=== PATIENT | male | born 1960 | race Caucasian/White ===

== ENCOUNTER 2018-02-16 15:40 | Inpatient (IN) | payer BC ==
[~2018-02-16] VITALS: Ht 165.1 cm; Wt 71.1 kg
[2018-02-16 16:11] LABS: BASOPHILS % (AUTO) 0.2 % (0-1); EOSINOPHILS # (AUTO) 0.1 X10'3 (0-0.9); EOSINOPHILS % (AUTO) 0.9 % (0-6); HEMATOCRIT 40.6 % (42.0-52.0); HEMOGLOBIN 14.1 g/dl (14.0-17.9); LYMPHOCYTES # (AUTO) 0.6 X10'3 (1.1-4.8); LYMPHOCYTES % (AUTO) 10.5 % (21-51); MEAN CORPUSCULAR HEMOGLOBIN 32.2 PG (27.0-31.0); MEAN CORPUSCULAR HGB CONC 34.8 % (33.0-36.5); MEAN CORPUSCULAR VOLUME 92.5 FL (78-98); MEAN PLATELET VOLUME 6.9 FL (7.4-10.4); MONOCYTES # (AUTO) 0.4 X10'3 (0-0.9); NEUTROPHILS # (AUTO) 4.9 X10'3 (1.8-7.7); NEUTROPHILS % (AUTO) 82.4 % (42-75); PLATELET COUNT 187 X10'3 (140-440); RED BLOOD COUNT 4.39 X10'6 (4.70-6.10); RED CELL DISTRIBUTION WIDTH 15.2 % (11.5-14.5); WHITE BLOOD COUNT 5.9 X10'3 (4.5-11.0)
[2018-02-16 16:20] LABS: INR 1.1 INR; PARTIAL THROMBOPLASTIN TIME 25 SECONDS (22-32); PROTHROMBIN TIME 11.1 SECONDS (9.0-12.0)
[2018-02-16 16:28] LABS: ALANINE AMINOTRANSFERASE 53 U/L (12-78); ALBUMIN 3.6 G/DL (3.4-5.0); ALBUMIN/GLOBULIN RATIO 0.9 (1.1-1.5); ALKALINE PHOSPHATASE 128 IU/L (46-116); ANION GAP 16 (8-16); ASPARTATE AMINO TRANSFERASE 67 U/L (10-37); BILIRUBIN,TOTAL 0.7 MG/DL (0.1-1.0); BLOOD UREA NITROGEN 13 MG/DL (7-18); BUN/CREATININE RATIO 12.9 (5.4-32.0); CALCIUM 8.6 MG/DL (8.5-10.1); CHLORIDE 104 MMOL/L (99-107); CREATININE 1.01 MG/DL (0.60-1.10); GLUCOSE 119 MG/DL (70-104); POTASSIUM 3.2 MMOL/L (3.5-5.1); SODIUM 140 MMOL/L (135-145); TOTAL CARBON DIOXIDE 19.9 MMOL/L (24-32); TOTAL PROTEIN 7.4 G/DL (6.4-8.2); eGFR 76 ML/MIN
[2018-02-16] MEDS ORDERED: normal saline 1000ML IV soln IVB ONE ×3 (16:40→22:25)
[2018-02-16] MEDS ORDERED: LOSA25TA96 PO (16:41)
[2018-02-16] MEDS ORDERED: ESCI20TA38 PO (16:41)
[2018-02-16] MEDS ORDERED: OMEP40CA37 PO (16:41)
[2018-02-16] MEDS ORDERED: AMLO2.5T2 PO (16:43)
[2018-02-16] MEDS ORDERED: ZOLP5TAB8 PO (16:43)
[2018-02-16 17:03] LABS: ETHANOL < 0.010 GM/DL (0.0-0.010)
[2018-02-16 18:40] LABS: COLOR,URINE YELLOW (Yellow); GLUCOSE, URINE NEGATIVE (Neg); KETONES,URINE NEGATIVE (Neg); LEUKOCYTE ESTERASE ,URINE NEGATIVE (Neg); NITRITES, URINE NEGATIVE (Neg); OCCULT BLOOD,URINE NEGATIVE (Neg); PH,URINE 5.5 (4.8-8.0); PROTEIN,URINE NEGATIVE (Neg); UROBILINOGEN,URINE 0.2 E.U/dL (0.2-1.0)
[2018-02-16 18:44] LABS: URINE AMPHETAMINE SCREEN NEGATIVE (Neg); URINE BARBITUATE SCREEN NEGATIVE (Neg); URINE BENZODIAZEPINES SCREEN NEGATIVE (Neg); URINE CANNABINOID SCREEN NEGATIVE (Neg); URINE COCAINE SCREEN NEGATIVE (Neg); URINE METHADONE SCREEN NEGATIVE (Neg); URINE OPIATE SCREEN NEGATIVE (Neg); URINE PHENCYCLIDINE SCREEN NEGATIVE (Neg)
[2018-02-16 18:48] LABS: CLARITY,URINE SLIGHTLY CLOUDY (Clear); UA COLLECTION TYPE VOIDED
[2018-02-16 18:49] LABS: BACTERIA,URINE NONE SEEN /HPF (Neg); RBC,URINE NONE SEEN /HPF (0-2); SQUAMOUS EPITHELIAL CELL,UR FEW /LPF (FEW); URIC ACID CRYSTALS 4+ /HPF (NEGATIVE); WBC,URINE NONE SEEN /HPF (0-4)
[2018-02-16] MEDS ORDERED: LORazepam 2 mg/ml vial IV ONE (19:10)
[2018-02-16] MEDS ORDERED: LIDOcaine 1% 30ml preserv. free vial IJ ONE (21:50)
[2018-02-16] MEDS ORDERED: LIDOcaine 1%/PF 5ML 10 MG/ML VIAL IJ ONE (21:50)
[2018-02-16 22:59] LABS: GLUCOSE,CSF 67 MG/DL (40-75); TOTAL PROTEIN,CSF 75 MG/DL (15-45)
[2018-02-16 23:10] LABS: APPEARANCE,CSF CLEAR; CSF RBC 0 /CU MM (0); CSF SUPERNATANT COLOR COLORLESS; TUBE# COUNTED 4
[2018-02-16 23:11] LABS: CSF WBC CT 0 /CU MM (0-5)
[2018-02-16] MEDS ORDERED: mag hydrox/Alum hydrox/simeth 30ml oral suspension PO PRN (23:55)
[2018-02-16] MEDS ORDERED: magnesium hydroxide 30ml (MOM) UD suspension PO PRN (23:55)
[2018-02-16] MEDS ORDERED: acetaminophen 325mg tablet PO PRN (23:55)
[2018-02-16] MEDS ORDERED: ondansetron/PF 4mg/2ml inj IV PRN (23:55)
[2018-02-17] MEDS ORDERED: LORazepam 2 mg/ml vial IV PRN
[2018-02-17] MEDS ORDERED: zolpidem 5mg tablet PO PRN (00:10)
[2018-02-17] MEDS ORDERED: levetiracetam 100mg/ml inj IV ONE (00:22)
[2018-02-17] MEDS: levetiracetam inj 1,000 MG in normal saline 100ml IV soln 90 ML IV SCH ×2 (00:41→09:19)
[2018-02-17 01:05] VITALS: BP 127/81
[2018-02-17] MEDS: normal saline 1000ml 1,000 ML IV SCH ×2 (01:30→09:54)
[2018-02-17 04:23] LABS: BASOPHILS % (AUTO) 0.4 % (0-1); EOSINOPHILS % (AUTO) 0.1 % (0-6); HEMATOCRIT 36.6 % (42.0-52.0); LYMPHOCYTES # (AUTO) 0.8 X10'3 (1.1-4.8); MEAN CORPUSCULAR HGB CONC 35.4 % (33.0-36.5); MEAN CORPUSCULAR VOLUME 93.1 FL (78-98); MEAN PLATELET VOLUME 7.4 FL (7.4-10.4); MONOCYTES # (AUTO) 0.3 X10'3 (0-0.9); MONOCYTES % (AUTO) 8.4 % (2-12); NEUTROPHILS # (AUTO) 2.3 X10'3 (1.8-7.7); NEUTROPHILS % (AUTO) 67.1 % (42-75); PLATELET COUNT 152 X10'3 (140-440); RED BLOOD COUNT 3.93 X10'6 (4.70-6.10); RED CELL DISTRIBUTION WIDTH 15.1 % (11.5-14.5); WHITE BLOOD COUNT 3.4 X10'3 (4.5-11.0)
[2018-02-17 04:37] LABS: ALANINE AMINOTRANSFERASE 42 U/L (12-78); ALBUMIN 2.9 G/DL (3.4-5.0); ALBUMIN/GLOBULIN RATIO 0.9 (1.1-1.5); ALKALINE PHOSPHATASE 110 IU/L (46-116); ANION GAP 12 (8-16); ASPARTATE AMINO TRANSFERASE 55 U/L (10-37); BILIRUBIN,TOTAL 0.6 MG/DL (0.1-1.0); BLOOD UREA NITROGEN 4 MG/DL (7-18); BUN/CREATININE RATIO 4.5 (5.4-32.0); CALCIUM 7.7 MG/DL (8.5-10.1); CHLORIDE 106 MMOL/L (99-107); CREATININE 0.88 MG/DL (0.60-1.10); GLUCOSE 104 MG/DL (70-104); POTASSIUM 3.4 MMOL/L (3.5-5.1); SODIUM 140 MMOL/L (135-145); TOTAL CARBON DIOXIDE 22.5 MMOL/L (24-32); TOTAL PROTEIN 6.2 G/DL (6.4-8.2); eGFR 89 ML/MIN
[2018-02-17] MEDS ORDERED: pantoprazole 40mg Tablet.DR PO SCH (07:30)
[2018-02-17 08:00] VITALS: BP 152/90
[2018-02-17] MEDS ORDERED: acyclovir inj 750 MG in normal saline 250ml IV soln 235 ML IV SCH (08:00)
[2018-02-17] MEDS ORDERED: losartan 25mg tablet PO SCH (08:00)
[2018-02-17] MEDS ORDERED: escitalopram 20mg tablet PO SCH (08:00)
[2018-02-17] MEDS ORDERED: amLODIPine 5mg tablet PO SCH (08:00)
[2018-02-17] MEDS ORDERED: gadopentetate dimeglumine 7.5 MMOL/15 ML syringe ONE (10:25)
[2018-02-18] MEDS ORDERED: citalopram 20mg tablet PO SCH (08:00)
[2018-02-21 05:24] LABS: HSV 1 PCR Negative (Negative); HSV 2 PCR Negative (Negative)
== END 2018-02-17 11:15 | disposition home or self-care (01) | DRG 683 ==
LOC: ER 15:41 → ED HOLD 23:54 → ORTHO 4S 02-17 01:00
PROVIDERS: ADMIT Internal Medicine; ATTEND Internal Medicine
PROC: 009U3ZZ Drainage of Spinal Canal, Percutaneous Approach (ICD-10-PCS; 2018-02-16)
PROC: 4A10X4Z Monitoring of Central Nervous Electrical Activity, External Approach (ICD-10-PCS; principal; 2018-02-17)
DX: N17.9 Acute kidney failure, unspecified (principal); R47.01 Aphasia; I10 Essential (primary) hypertension; R13.10 Dysphagia, unspecified; E86.0 Dehydration; F32.9 Major depressive disorder, single episode, unspecified
CPT/HCPCS: 36415; 70450; 70544; 70547; 70551; 71045; 80053; 80305; 80320; 81001; 82140; 82945; 84157; 84484; 85025; 85610; 85730; 86788; 86789; 87015; 87070; 87529; 89051; 93005; 95816; 96361; 96374; 99285; A9579; J0133; J1953; J2001; J2060; J7030

== ENCOUNTER 2019-04-05 13:50 | Inpatient (IN) | payer BC, OTHER ==
[~2019-04-05] VITALS: Ht 165.1 cm; Wt 78.0 kg
[~2019-04-05 13:50] MED LIST: ATOR20TA PO; CARV-50 PO; ESCI20TA38 PO; FURO40TA4 PO; LOSA25TA96 PO; OMEP40CA13 PO; SPIR25TA PO; ZOLP5TAB8 PO
[2019-04-05] MEDS ORDERED: normal saline 1000ML IV soln IVB ONE (15:35)
[2019-04-05] MEDS ORDERED: ondansetron/PF 4mg/2ml inj IV ONE (15:35)
[2019-04-05] MEDS ORDERED: LORazepam 2 mg/ml vial IV ONE ×2 (15:35→17:20)
[2019-04-05 15:57] LABS: BASOPHILS % (AUTO) 0.5 % (0-1); EOSINOPHILS # (AUTO) 0.1 X10'3 (0-0.9); EOSINOPHILS % (AUTO) 0.8 % (0-6); HEMATOCRIT 46.5 % (42.0-52.0); HEMOGLOBIN 16.1 g/dl (14.0-17.9); LYMPHOCYTES # (AUTO) 2.1 X10'3 (1.1-4.8); LYMPHOCYTES % (AUTO) 29.2 % (21-51); MEAN CORPUSCULAR HEMOGLOBIN 31.6 PG (27.0-31.0); MEAN CORPUSCULAR HGB CONC 34.6 g/dL (33.0-36.5); MEAN CORPUSCULAR VOLUME 91.1 FL (78-98); MEAN PLATELET VOLUME 7.8 FL (7.4-10.4); MONOCYTES # (AUTO) 0.4 X10'3 (0-0.9); MONOCYTES % (AUTO) 5.3 % (2-12); NEUTROPHILS # (AUTO) 4.5 X10'3 (1.8-7.7); NEUTROPHILS % (AUTO) 64.2 % (42-75); PLATELET COUNT 203 X10'3 (140-440); RED BLOOD COUNT 5.11 X10'6 (4.70-6.10); WHITE BLOOD COUNT 7.1 X10'3 (4.5-11.0)
[2019-04-05 16:15] LABS: ALANINE AMINOTRANSFERASE 104 U/L (12-78); ALBUMIN 3.7 G/DL (3.4-5.0); ALBUMIN/GLOBULIN RATIO 0.8 (1.1-1.5); ALKALINE PHOSPHATASE 143 IU/L (46-116); ANION GAP 15 (8-16); ASPARTATE AMINO TRANSFERASE 146 U/L (10-37); BLOOD UREA NITROGEN 70 MG/DL (7-18); BUN/CREATININE RATIO 30.7 (5.4-32.0); CALCIUM 9.1 MG/DL (8.5-10.1); CHLORIDE 101 MMOL/L (99-107); CREATININE 2.28 MG/DL (0.60-1.10); GLUCOSE 148 MG/DL (70-104); MAGNESIUM 1.8 MG/DL (1.5-2.4); POTASSIUM 4.7 MMOL/L (3.5-5.1); SODIUM 134 MMOL/L (135-145); TOTAL CARBON DIOXIDE 17.7 MMOL/L (24-32); TOTAL PROTEIN 8.4 G/DL (6.4-8.2); eGFR 30 ML/MIN
[2019-04-05] MEDS ORDERED: PANT40TA4 PO (16:40)
[2019-04-05] MEDS ORDERED: SPIR25TA5 PO (16:40)
[2019-04-05] MEDS ORDERED: CARV-50 PO (16:40)
[2019-04-05] MEDS ORDERED: FURO40TA4 PO (16:40)
[2019-04-05] MEDS ORDERED: POTA-82 PO (16:40)
[2019-04-05] MEDS ORDERED: ASPI-611 PO (16:40)
[2019-04-05] MEDS ORDERED: OMEG-107 PO (16:40)
[2019-04-05] MEDS ORDERED: thiamine 100mg/ml 2ml inj. IV ONE (17:35)
[2019-04-05] MEDS ORDERED: magnesium hydroxide 30ml (MOM) UD suspension PO PRN (17:35)
[2019-04-05] MEDS ORDERED: dextrose 50%-water 50ml dispensing syringe IV PRN (17:35)
[2019-04-05] MEDS ORDERED: mag hydrox/Alum hydrox/simeth 30ml oral suspension PO PRN (17:35)
[2019-04-05] MEDS ORDERED: LORazepam 2 mg/ml vial IV PRN (17:35)
[2019-04-05] MEDS ORDERED: acetaminophen 325mg tablet PO PRN (17:35)
[2019-04-05] MEDS ORDERED: ondansetron/PF 4mg/2ml inj IV PRN (17:35)
[2019-04-05] MEDS: normal saline 1000ml 1,000 ML IV SCH (18:05)
[2019-04-05 20:00] VITALS: BP 116/59
[2019-04-05] MEDS: heparin, porcine 5000 units/ml vial SQ SCH (21:15)
[2019-04-06] VITALS: BP 112/71
[2019-04-06 04:52] LABS: BASOPHILS % (AUTO) 0.4 % (0-1); EOSINOPHILS # (AUTO) 0.1 X10'3 (0-0.9); EOSINOPHILS % (AUTO) 2.1 % (0-6); HEMATOCRIT 39.9 % (42.0-52.0); HEMOGLOBIN 13.6 g/dl (14.0-17.9); LYMPHOCYTES # (AUTO) 1.5 X10'3 (1.1-4.8); MEAN CORPUSCULAR HEMOGLOBIN 31.3 PG (27.0-31.0); MEAN CORPUSCULAR HGB CONC 34.2 g/dL (33.0-36.5); MEAN CORPUSCULAR VOLUME 91.5 FL (78-98); MEAN PLATELET VOLUME 7.9 FL (7.4-10.4); MONOCYTES # (AUTO) 0.3 X10'3 (0-0.9); MONOCYTES % (AUTO) 8.9 % (2-12); NEUTROPHILS # (AUTO) 1.7 X10'3 (1.8-7.7); NEUTROPHILS % (AUTO) 47.6 % (42-75); PLATELET COUNT 137 X10'3 (140-440); RED BLOOD COUNT 4.36 X10'6 (4.70-6.10); RED CELL DISTRIBUTION WIDTH 15.1 % (11.5-14.5); WHITE BLOOD COUNT 3.6 X10'3 (4.5-11.0)
[2019-04-06 05:25] LABS: ALANINE AMINOTRANSFERASE 86 U/L (12-78); ALBUMIN 2.8 G/DL (3.4-5.0); ALBUMIN/GLOBULIN RATIO 0.8 (1.1-1.5); ALKALINE PHOSPHATASE 114 IU/L (46-116); ANION GAP 12 (8-16); ASPARTATE AMINO TRANSFERASE 121 U/L (10-37); BILIRUBIN,TOTAL 0.8 MG/DL (0.1-1.0); BLOOD UREA NITROGEN 47 MG/DL (7-18); CALCIUM 8.3 MG/DL (8.5-10.1); CHLORIDE 106 MMOL/L (99-107); CREATININE 1.47 MG/DL (0.60-1.10); GLUCOSE 117 MG/DL (70-104); SODIUM 138 MMOL/L (135-145); TOTAL CARBON DIOXIDE 20.3 MMOL/L (24-32); TOTAL PROTEIN 6.5 G/DL (6.4-8.2); eGFR 49 ML/MIN
[2019-04-06 05:45] LABS: POTASSIUM 4.6 MMOL/L (3.5-5.1)
--- NOTE | 2019-04-06 06:17 | NUR ---
Problems reprioritized. Patient report given, questions answered & plan of care reviewed with FIGUEROA. Addendum: 04/06/19 at 0618 by Eduardo Esposito RN Amended: Links added.
[2019-04-06 08:00] VITALS: BP 129/78
[2019-04-06] MEDS: normal saline 1000ml 1,000 ML IV SCH ×2 (08:10→20:24)
[2019-04-06] MEDS: MVI, adult No.4 with vit. K 10 ML in dextrose 5% water 500ml 500 ML IV SCH ×2 (08:10)
[2019-04-06] MEDS: thiamine inj. 100 MG, folic acid inj. 2 MG in normal saline 100ml IV soln 99 ML IV SCH (08:15)
[2019-04-06] MEDS: heparin, porcine 5000 units/ml vial SQ SCH ×2 (08:16→20:16)
[2019-04-06] MEDS ORDERED: zolpidem 5mg tablet PO PRN (12:55)
[2019-04-06 20:00] VITALS: BP 153/77
[2019-04-06] MEDS: carVEDilol 12.5mg tablet PO SCH (20:15)
[2019-04-06] MEDS: pantoprazole 40mg Tablet.DR PO SCH (20:15)
[2019-04-06] MEDS ORDERED: omega-3 acid ethyl esters 1GM capsule PO SCH (21:00)
[2019-04-07] VITALS: BP 150/78
[2019-04-07 04:58] LABS: BASOPHILS % (AUTO) 0.6 % (0-1); EOSINOPHILS # (AUTO) 0.1 X10'3 (0-0.9); HEMATOCRIT 37.5 % (42.0-52.0); HEMOGLOBIN 12.9 g/dl (14.0-17.9); LYMPHOCYTES # (AUTO) 1.5 X10'3 (1.1-4.8); LYMPHOCYTES % (AUTO) 43.5 % (21-51); MEAN CORPUSCULAR HEMOGLOBIN 31.2 PG (27.0-31.0); MEAN CORPUSCULAR HGB CONC 34.4 g/dL (33.0-36.5); MEAN CORPUSCULAR VOLUME 90.9 FL (78-98); MONOCYTES # (AUTO) 0.3 X10'3 (0-0.9); MONOCYTES % (AUTO) 8.9 % (2-12); NEUTROPHILS # (AUTO) 1.5 X10'3 (1.8-7.7); PLATELET COUNT 116 X10'3 (140-440); RED BLOOD COUNT 4.12 X10'6 (4.70-6.10); RED CELL DISTRIBUTION WIDTH 14.7 % (11.5-14.5); WHITE BLOOD COUNT 3.4 X10'3 (4.5-11.0)
[2019-04-07 05:11] LABS: ALANINE AMINOTRANSFERASE 64 U/L (12-78); ALBUMIN 2.7 G/DL (3.4-5.0); ALBUMIN/GLOBULIN RATIO 0.8 (1.1-1.5); ALKALINE PHOSPHATASE 99 IU/L (46-116); ANION GAP 8 (8-16); ASPARTATE AMINO TRANSFERASE 71 U/L (10-37); BILIRUBIN,TOTAL 0.7 MG/DL (0.1-1.0); BLOOD UREA NITROGEN 18 MG/DL (7-18); BUN/CREATININE RATIO 18.2 (5.4-32.0); CALCIUM 8.9 MG/DL (8.5-10.1); CHLORIDE 106 MMOL/L (99-107); CREATININE 0.99 MG/DL (0.60-1.10); GLUCOSE 104 MG/DL (70-104); POTASSIUM 4.4 MMOL/L (3.5-5.1); SODIUM 138 MMOL/L (135-145); TOTAL CARBON DIOXIDE 23.6 MMOL/L (24-32); TOTAL PROTEIN 6.1 G/DL (6.4-8.2); eGFR 78 ML/MIN
--- NOTE | 2019-04-07 06:00 | NUR ---
Patient in room [facility]. I have received report from Candace MISTRY and had the opportunity to ask questions and assume patient care.
--- NOTE | 2019-04-07 06:34 | NUR ---
Problems reprioritized. Patient report given, questions answered & plan of care reviewed with FIDELIA Davis.
[2019-04-07] MEDS: thiamine inj. 100 MG, folic acid inj. 2 MG in normal saline 100ml IV soln 99 ML IV SCH (07:25)
[2019-04-07] MEDS: MVI, adult No.4 with vit. K 10 ML in dextrose 5% water 500ml 500 ML IV SCH ×2 (07:26)
[2019-04-07] MEDS: pantoprazole 40mg Tablet.DR PO SCH (07:26)
[2019-04-07] MEDS: heparin, porcine 5000 units/ml vial SQ SCH (07:27)
[2019-04-07] MEDS: carVEDilol 12.5mg tablet PO SCH (07:27)
[2019-04-07 07:45] VITALS: BP 159/81
[2019-04-07] MEDS ORDERED: citalopram 20mg tablet PO SCH (08:00)
[2019-04-07] MEDS ORDERED: atorvastatin 20mg tablet PO SCH (08:00)
[2019-04-07] MEDS ORDERED: aspirin 81mg tablet.DR PO SCH (08:00)
[2019-04-07] MEDS ORDERED: non-formulary drug (Potassium Chloride 1 TAB) PO SCH (08:00)
[2019-04-07] MEDS ORDERED: spironolactone 25 MG tablet PO SCH (08:00)
[2019-04-07] MEDS ORDERED: furosemide 40mg tablet PO SCH (08:00)
[2019-04-07] MEDS ORDERED: losartan 50mg tablet PO SCH (08:00)
[2019-04-07] MEDS ORDERED: non-formulary drug (Aspirin (Aspir 81) 1 TAB) PO SCH (08:00)
[2019-04-07] MEDS ORDERED: potassium Cl 20 mEq SR tablet PO SCH (08:00)
[2019-04-07] MEDS ORDERED: non-formulary drug (Escitalopram Oxalate 1 TAB) PO SCH (08:00)
--- NOTE | 2019-04-07 10:58 | NUR ---
Patient discharged with all belongings. Pt walked to front lobby with PCT. IV taken out, tele taken off. Discharge paperwork gone over with pt.
[2019-04-07] MEDS ORDERED: LORazepam 2 mg/ml vial IV PRN (17:35)
[2019-04-07] MEDS ORDERED: LORazepam 1 MG tablet PO PRN (17:35)
[2019-04-08] MEDS ORDERED: multivitamins, therapeutics tablet PO SCH (08:00)
[2019-04-08] MEDS ORDERED: folic acid 1mg tablet PO SCH (08:00)
[2019-04-08] MEDS ORDERED: thiamine 100mg tablet PO SCH (08:00)
[2019-04-09] MEDS ORDERED: LORazepam 1 MG tablet PO PRN (17:35)
[2019-04-09] MEDS ORDERED: LORazepam 2 mg/ml vial IV PRN (17:35)
== END 2019-04-07 10:55 | disposition home or self-care (01) | DRG 896 ==
LOC: ER 13:52 → SUR 3N 19:10
PROVIDERS: ADMIT Family Medicine; ATTEND Internal Medicine
DX: F10.239 Alcohol dependence with withdrawal, unspecified (principal); N17.0 Acute kidney failure with tubular necrosis; I42.0 Dilated cardiomyopathy; I50.22 Chronic systolic (congestive) heart failure; E86.0 Dehydration; E78.00 Pure hypercholesterolemia, unspecified; K70.10 Alcoholic hepatitis without ascites; R74.0 Nonspecific elevation of levels of transaminase and lactic acid dehydrogenase [LDH]; E78.5 Hyperlipidemia, unspecified; I11.0 Hypertensive heart disease with heart failure; Z79.82 Long term (current) use of aspirin; Z79.899 Other long term (current) drug therapy; Z82.49 Family history of ischemic heart disease and other diseases of the circulatory system
CPT/HCPCS: 36415; 71045; 80053; 83735; 83880; 84484; 85025; 87081; 93005; 96361; 96374; 96375; 96376; 99285; G0378; J1644; J2060; J2405; J3411; J3490; J7030; J7060

== ENCOUNTER 2021-04-29 12:26 | Emergency (ER) | payer OTHER ==
[~2021-04-29] VITALS: Ht 162.6 cm; Wt 90.0 kg
[~2021-04-29 12:26] MED LIST changes: +ASPI-611 PO; -ESCI20TA38 PO; +ESCI20TA39 PO; +OMEG-220 PO; -OMEP40CA13 PO; +PANT40TA54 PO; +POTA-82 PO; -SPIR25TA PO; +SPIR25TA5 PO
[2021-04-29 12:40] VITALS: BP 146/98
[2021-04-29] MEDS ORDERED: LEVO500T89 PO (13:06)
[2021-04-29] MEDS ORDERED: PRED20TA PO (13:06)
[2021-04-29] MEDS ORDERED: ALBU6.7H9 INH (13:06)
== END 2021-04-29 13:24 | disposition home or self-care (01) ==
LOC: ER 12:26
DX: U07.1 COVID-19 (principal); J12.82 Pneumonia due to coronavirus disease 2019; E78.00 Pure hypercholesterolemia, unspecified; I10 Essential (primary) hypertension; Z72.89 Other problems related to lifestyle; Z79.82 Long term (current) use of aspirin; Z79.899 Other long term (current) drug therapy
CPT/HCPCS: 71045; 99283

== ENCOUNTER 2021-06-13 08:46 | Emergency (ER) | payer OTHER ==
[~2021-06-13] VITALS: Ht 165.1 cm; Wt 98.0 kg
[~2021-06-13 08:46] MED LIST changes: +ALBU6.7H9 INH
[2021-06-13 09:36] LABS: BASOPHILS % (AUTO) 0.6 % (0-1); EOSINOPHILS # (AUTO) 0.2 X10'3 (0-0.9); EOSINOPHILS % (AUTO) 3.9 % (0-6); HEMATOCRIT 43.1 % (42.0-52.0); HEMOGLOBIN 15.1 g/dl (14.0-17.9); LYMPHOCYTES # (AUTO) 1.3 X10'3 (1.1-4.8); LYMPHOCYTES % (AUTO) 23.3 % (21-51); MEAN CORPUSCULAR HEMOGLOBIN 31.6 PG (27.0-31.0); MEAN CORPUSCULAR HGB CONC 34.9 g/dL (33.0-36.5); MEAN CORPUSCULAR VOLUME 90.4 FL (78-98); MONOCYTES # (AUTO) 0.4 X10'3 (0-0.9); MONOCYTES % (AUTO) 7.1 % (2-12); NEUTROPHILS # (AUTO) 3.6 X10'3 (1.8-7.7); NEUTROPHILS % (AUTO) 65.1 % (42-75); PLATELET COUNT 188 X10'3 (140-440); RED BLOOD COUNT 4.77 X10'6 (4.70-6.10); RED CELL DISTRIBUTION WIDTH 14.5 % (11.5-14.5); WHITE BLOOD COUNT 5.5 X10'3 (4.5-11.0)
[2021-06-13 09:38] LABS: CLARITY,URINE SLIGHTLY CLOUDY (Clear); COLOR,URINE YELLOW (Yellow); UA COLLECTION TYPE CLN CATCH MIDSTREAM
[2021-06-13 09:39] LABS: GLUCOSE, URINE NEGATIVE (Neg); KETONES,URINE NEGATIVE (Neg); LEUKOCYTE ESTERASE ,URINE NEGATIVE (Neg); NITRITES, URINE NEGATIVE (Neg); OCCULT BLOOD,URINE NEGATIVE (Neg); PROTEIN,URINE TRACE mg/dl (Neg); UROBILINOGEN,URINE 0.2 E.U/dL (0.2-1.0)
[2021-06-13 09:43] LABS: MUCUS STRANDS MANY /LPF (Neg); SQUAMOUS EPITHELIAL CELL,UR FEW /LPF (FEW)
[2021-06-13 09:44] LABS: BACTERIA,URINE FEW /HPF (Neg); HYALINE CASTS 0-3 /LPF (NEGATIVE); RBC,URINE 0-2 /HPF (0-2); WBC,URINE 0-4 /HPF (0-4)
[2021-06-13 09:46] LABS: ALANINE AMINOTRANSFERASE 50 U/L (12-78); ALBUMIN 3.6 G/DL (3.4-5.0); ALKALINE PHOSPHATASE 78 IU/L (46-116); ANION GAP 10 (8-16); ASPARTATE AMINO TRANSFERASE 29 U/L (10-37); BILIRUBIN,TOTAL 0.8 MG/DL (0.1-1.0); BLOOD UREA NITROGEN 9 MG/DL (7-18); BUN/CREATININE RATIO 10.1 (5.4-32.0); CALCIUM 8.6 MG/DL (8.5-10.1); CHLORIDE 105 MMOL/L (99-107); CREATININE 0.89 MG/DL (0.60-1.10); GLUCOSE 170 MG/DL (70-104); LIPASE 63 U/L (73-393); POTASSIUM 3.7 MMOL/L (3.5-5.1); SODIUM 142 MMOL/L (135-145); TOTAL PROTEIN 7.2 G/DL (6.4-8.2); eGFR 87 ML/MIN
[2021-06-13] MEDS ORDERED: ketorolac tromethamine 15mg/ml inj. IM ONE (11:10)
[2021-06-13] MEDS ORDERED: orphenadrine citrate 60mg/2ml inj. IM ONE (11:10)
[2021-06-13] MEDS ORDERED: ACET-1025 PO (11:21)
[2021-06-13] MEDS ORDERED: ORPH100T2 PO (11:21)
[2021-06-13 11:46] VITALS: BP 157/90
== END 2021-06-13 11:49 | disposition home or self-care (01) ==
LOC: ER 08:47
DX: M54.9 Dorsalgia, unspecified (principal); R10.84 Generalized abdominal pain; E78.00 Pure hypercholesterolemia, unspecified; I10 Essential (primary) hypertension; Z72.89 Other problems related to lifestyle; Z79.82 Long term (current) use of aspirin; Z79.899 Other long term (current) drug therapy
CPT/HCPCS: 36415; 80053; 81001; 83690; 85025; 96372; 99284; J1885; J2360

== ENCOUNTER 2023-02-21 13:05 | Emergency (ER) | payer OTHER, MEDICAID ==
[~2023-02-21] VITALS: Ht 160 cm; Wt 100.0 kg
[~2023-02-21 13:05] MED LIST changes: +ALBU6.7H14 INH; -ALBU6.7H9 INH; -ASPI-611 PO; +CYAN-34 PO; +FOLI1TAB27 PO; +METF-1203 PO; +MULT-1074 PO; -POTA-82 PO; -SPIR25TA5 PO; +THIA50TA10 PO
[2023-02-21 13:48] LABS: BASOPHILS % (AUTO) 0.4 % (0-1); EOSINOPHILS # (AUTO) 0.1 X10'3 (0-0.9); EOSINOPHILS % (AUTO) 0.8 % (0-6); HEMATOCRIT 48.8 % (42.0-52.0); HEMOGLOBIN 16.7 g/dl (14.0-17.9); LYMPHOCYTES # (AUTO) 1.5 X10'3 (1.1-4.8); LYMPHOCYTES % (AUTO) 17.3 % (21-51); MEAN CORPUSCULAR HEMOGLOBIN 31.6 PG (27.0-31.0); MEAN CORPUSCULAR HGB CONC 34.1 g/dL (33.0-36.5); MEAN CORPUSCULAR VOLUME 92.6 FL (78-98); MEAN PLATELET VOLUME 8.4 FL (7.4-10.4); MONOCYTES # (AUTO) 0.6 X10'3 (0-0.9); MONOCYTES % (AUTO) 6.8 % (2-12); NEUTROPHILS # (AUTO) 6.7 X10'3 (1.8-7.7); NEUTROPHILS % (AUTO) 74.7 % (42-75); PLATELET COUNT 155 X10'3 (140-440); RED BLOOD COUNT 5.27 X10'6 (4.70-6.10); RED CELL DISTRIBUTION WIDTH 14.4 % (11.5-14.5); WHITE BLOOD COUNT 8.9 X10'3 (4.5-11.0)
[2023-02-21 14:00] LABS: ALANINE AMINOTRANSFERASE 38 U/L (12-78); ALBUMIN 3.4 G/DL (3.4-5.0); ALBUMIN/GLOBULIN RATIO 0.9 (1.1-1.5); ALKALINE PHOSPHATASE 94 IU/L (46-116); ANION GAP 17 (8-16); ASPARTATE AMINO TRANSFERASE 18 U/L (10-37); BILIRUBIN,TOTAL 0.8 MG/DL (0.1-1.0); BLOOD UREA NITROGEN 28 MG/DL (7-18); BUN/CREATININE RATIO 28.6 (10.0-20.0); CALCIUM 10.4 MG/DL (8.5-10.1); CHLORIDE 93 MMOL/L (99-107); CREATININE 0.98 MG/DL (0.60-1.10); POTASSIUM 4.3 MMOL/L (3.5-5.1); SODIUM 131 MMOL/L (135-145); TOTAL CARBON DIOXIDE 21.4 MMOL/L (24-32); TOTAL PROTEIN 7.1 G/DL (6.4-8.2); eGFR 78 ML/MIN
[2023-02-21 14:03] LABS: GLUCOSE 485 MG/DL (70-104)
[2023-02-21] MEDS ORDERED: insulin regular, human U-100 3ml vial - multi-dose IV ONE (14:15)
[2023-02-21] MEDS ORDERED: normal saline 1000ML IV soln IVB ONE (14:15)
[2023-02-21 16:49] VITALS: BP 135/78
== END 2023-02-21 17:21 | disposition home or self-care (01) ==
LOC: ER 13:06
DX: E11.65 Type 2 diabetes mellitus with hyperglycemia (principal); F10.20 Alcohol dependence, uncomplicated; E78.00 Pure hypercholesterolemia, unspecified; I10 Essential (primary) hypertension; Y90.9 Presence of alcohol in blood, level not specified
CPT/HCPCS: 36415; 80053; 82948; 85025; 96361; 96374; 99284; J1815; J7030

== ENCOUNTER 2023-06-01 10:40 | Inpatient (IN) | payer OTHER, MEDICARE, MEDICAID ==
[~2023-06-01] VITALS: Ht 162.6 cm; Wt 100.0 kg
[~2023-06-01 10:40] MED LIST changes: +CHLO25CA10 PO; +LOSA-415 PO; -LOSA25TA96 PO; -METF-1203 PO
[2023-06-01] MEDS ORDERED: pantoprazole 40 MG vial IV ONE (10:55)
[2023-06-01] MEDS ORDERED: normal saline 1000ML IV soln IVB ONE (10:55)
[2023-06-01] MEDS ORDERED: pantoprazole 40MG/NS 100ML BAG 100 ML IV ONE (11:10)
[2023-06-01 11:31] LABS: BASOPHILS % (AUTO) 0.4 % (0-1); EOSINOPHILS % (AUTO) 0.5 % (0-6); HEMATOCRIT 47.9 % (42.0-52.0); HEMOGLOBIN 16.6 g/dl (14.0-17.9); LYMPHOCYTES # (AUTO) 1.1 X10'3 (1.1-4.8); LYMPHOCYTES % (AUTO) 15.5 % (21-51); MEAN CORPUSCULAR HEMOGLOBIN 31.8 PG (27.0-31.0); MEAN CORPUSCULAR HGB CONC 34.6 g/dL (33.0-36.5); MEAN CORPUSCULAR VOLUME 91.8 FL (78-98); MEAN PLATELET VOLUME 8.6 FL (7.4-10.4); MONOCYTES # (AUTO) 0.4 X10'3 (0-0.9); NEUTROPHILS # (AUTO) 5.3 X10'3 (1.8-7.7); NEUTROPHILS % (AUTO) 77.6 % (42-75); PLATELET COUNT 154 X10'3 (140-440); RED BLOOD COUNT 5.22 X10'6 (4.70-6.10); RED CELL DISTRIBUTION WIDTH 13.5 % (11.5-14.5); WHITE BLOOD COUNT 6.8 X10'3 (4.5-11.0)
[2023-06-01 11:45] LABS: ALANINE AMINOTRANSFERASE 53 U/L (12-78); ALBUMIN 3.4 G/DL (3.4-5.0); ALBUMIN/GLOBULIN RATIO 0.9 (1.1-1.5); ALKALINE PHOSPHATASE 101 IU/L (46-116); ANION GAP 10 (8-16); BILIRUBIN,TOTAL 0.9 MG/DL (0.1-1.0); BLOOD UREA NITROGEN 22 MG/DL (7-18); BUN/CREATININE RATIO 23.2 (10.0-20.0); CALCIUM 10.2 MG/DL (8.5-10.1); CHLORIDE 87 MMOL/L (99-107); CREATININE 0.95 MG/DL (0.60-1.10); SODIUM 125 MMOL/L (135-145); TOTAL PROTEIN 7.1 G/DL (6.4-8.2); eCRCL 68 ML/MIN; eGFR 80 ML/MIN
[2023-06-01 12:05] LABS: ASPARTATE AMINO TRANSFERASE 15 U/L (10-37)
[2023-06-01 12:06] LABS: LIPASE 40 U/L (16-77); POTASSIUM 4.4 MMOL/L (3.5-5.1)
[2023-06-01 12:08] LABS: GLUCOSE 669 MG/DL (70-104)
[2023-06-01 12:11] LABS: ACETONE SMALL (NEGATIVE)
[2023-06-01 12:18] LABS: BILIRUBIN,URINE NEGATIVE (Neg); CLARITY,URINE CLEAR (Clear); COLOR,URINE STRAW (Yellow); GLUCOSE, URINE >=1000 mg/dl (Neg); KETONES,URINE 15 mg/dl (Neg); LEUKOCYTE ESTERASE ,URINE NEGATIVE (Neg); NITRITES, URINE NEGATIVE (Neg); OCCULT BLOOD,URINE NEGATIVE (Neg); PROTEIN,URINE NEGATIVE (Neg); UROBILINOGEN,URINE 0.2 E.U/dL (0.2-1.0)
[2023-06-01 12:19] LABS: UA COLLECTION TYPE CLN CATCH MIDSTREAM
[2023-06-01 12:24] LABS: BACTERIA,URINE NONE SEEN /HPF (Neg); RBC,URINE 0-2 /HPF (0-2); SQUAMOUS EPITHELIAL CELL,UR FEW /LPF (FEW); WBC,URINE 0-4 /HPF (0-4)
[2023-06-01] MEDS ORDERED: insulin regular, human 10 units/0.1 ml syringe SQ ONE (13:10)
[2023-06-01] MEDS ORDERED: magnesium Cl slow-release 64mg tablet PO PRN (13:40)
[2023-06-01] MEDS ORDERED: acetaminophen 325mg tablet PO PRN ×2 (13:40)
[2023-06-01] MEDS ORDERED: magnesium 2GM in 50ml NS 50 ML IV PRN (13:40)
[2023-06-01] MEDS ORDERED: magnesium 4gm in 100ml NS 100 ML IV PRN (13:40)
[2023-06-01] MEDS ORDERED: MESSAGE TO PHARMACY PO ONE (13:40)
[2023-06-01] MEDS ORDERED: ondansetron/PF 4mg/2ml inj IV PRN (13:40)
[2023-06-01] MEDS ORDERED: potassium Cl 20 mEq SR tablet PO PRN ×2 (13:40)
[2023-06-01] MEDS ORDERED: glucagon, human recombinant 1mg kit SUBCUT PRN (13:40)
[2023-06-01] MEDS ORDERED: potassium Cl 40MEQ/1/2NS 520ml 520 ML IV PRN (13:40)
[2023-06-01] MEDS ORDERED: dextrose 50%-water 50ml dispensing syringe IV PRN ×2 (13:40)
[2023-06-01] MEDS ORDERED: DEXTROSE 15 GM of carb/4 tabs (each vial/BOTTLE has 4 tablets) PO PRN ×2 (13:40)
[2023-06-01] MEDS ORDERED: METF-1203 PO (14:38)
[2023-06-01] MEDS ORDERED: FOLI1TAB27 PO (14:38)
[2023-06-01] MEDS ORDERED: THIA100T66 PO (14:38)
[2023-06-01] MEDS ORDERED: INSU100I31 SQ (14:38)
[2023-06-01] MEDS ORDERED: ESCI20TA39 PO (14:38)
[2023-06-01] MEDS ORDERED: EMPA25TA PO (14:38)
[2023-06-01] MEDS ORDERED: insulin regular, human 10 units/0.1 ml syringe IV ONE (16:20)
[2023-06-01] MEDS ORDERED: LORazepam 1 MG tablet PO PRN (16:45)
[2023-06-01] MEDS ORDERED: LORazepam 2 mg/ml vial IV PRN (16:45)
[2023-06-01] MEDS: normal saline 1000ml 1,000 ML IV SCH ×2 (17:31→22:28)
[2023-06-01] MEDS: atenolol 25mg tablet PO SCH (17:36)
[2023-06-01 17:56] LABS: PRO BRAIN NATRIURETIC PEPTIDE 318 PG/ML (0-125)
[2023-06-01] MEDS: insulin Lispro (HumaLOG) vial - multi-dose SQ SCH (18:20)
[2023-06-01 20:21] VITALS: BP 140/101; PULSE 66; RESP 18; TEMP 97.9; O2SAT 94
[2023-06-01] MEDS ORDERED: insulin glargine (Lantus) pen - multi-dose SQ SCH (21:00)
[2023-06-01] MEDS: heparin, porcine 5000 units/ml vial SQ SCH (21:20)
[2023-06-01 21:51] VITALS: RESP 18; O2SAT 94
[2023-06-01 22:00] VITALS: BP 126/75; PULSE 56; RESP 18; TEMP 98.5; O2SAT 93
[2023-06-02 02:00] VITALS: BP 117/59; PULSE 53; RESP 18; TEMP 98; O2SAT 92
[2023-06-02 06:49] LABS: BASOPHILS % (AUTO) 0.4 % (0-1); EOSINOPHILS # (AUTO) 0.1 X10'3 (0-0.9); EOSINOPHILS % (AUTO) 1.8 % (0-6); HEMATOCRIT 43.9 % (42.0-52.0); HEMOGLOBIN 15.2 g/dl (14.0-17.9); LYMPHOCYTES # (AUTO) 1.3 X10'3 (1.1-4.8); LYMPHOCYTES % (AUTO) 33.1 % (21-51); MEAN CORPUSCULAR HEMOGLOBIN 32.3 PG (27.0-31.0); MEAN CORPUSCULAR HGB CONC 34.5 g/dL (33.0-36.5); MEAN CORPUSCULAR VOLUME 93.5 FL (78-98); MEAN PLATELET VOLUME 8.7 FL (7.4-10.4); MONOCYTES # (AUTO) 0.3 X10'3 (0-0.9); MONOCYTES % (AUTO) 6.5 % (2-12); NEUTROPHILS # (AUTO) 2.4 X10'3 (1.8-7.7); NEUTROPHILS % (AUTO) 58.2 % (42-75); PLATELET COUNT 116 X10'3 (140-440); RED CELL DISTRIBUTION WIDTH 13.4 % (11.5-14.5)
[2023-06-02 07:12] LABS: ALANINE AMINOTRANSFERASE 44 U/L (12-78); ALBUMIN 2.8 G/DL (3.4-5.0); ALBUMIN/GLOBULIN RATIO 0.9 (1.1-1.5); ALKALINE PHOSPHATASE 81 IU/L (46-116); ANION GAP 11 (8-16); ASPARTATE AMINO TRANSFERASE 26 U/L (10-37); BILIRUBIN,TOTAL 0.7 MG/DL (0.1-1.0); BLOOD UREA NITROGEN 14 MG/DL (7-18); BUN/CREATININE RATIO 17.7 (10.0-20.0); CALCIUM 8.7 MG/DL (8.5-10.1); CHLORIDE 96 MMOL/L (99-107); CREATININE 0.79 MG/DL (0.60-1.10); GLUCOSE 374 MG/DL (70-104); MAGNESIUM 1.7 MG/DL (1.5-2.4); PHOSPHORUS 3.5 MG/DL (2.3-4.5); SODIUM 132 MMOL/L (135-145); TOTAL CARBON DIOXIDE 25.2 MMOL/L (24-32); eCRCL 81 ML/MIN; eGFR > 90 ML/MIN
[2023-06-02 07:13] LABS: LIPASE 30 U/L (16-77); POTASSIUM 3.6 MMOL/L (3.5-5.1)
[2023-06-02] MEDS: heparin, porcine 5000 units/ml vial SQ SCH (07:24)
[2023-06-02 07:50] VITALS: BP 100/51; PULSE 54; RESP 16; TEMP 98.6; O2SAT 97
[2023-06-02 07:54] VITALS: BP 126/88; PULSE 62; RESP 16
[2023-06-02 08:00] VITALS: RESP 16; O2SAT 97
[2023-06-02] MEDS ORDERED: folic acid 1mg tablet PO SCH (08:00)
[2023-06-02] MEDS ORDERED: thiamine 100mg tablet PO SCH (08:00)
[2023-06-02 08:50] VITALS: BP 127/76; PULSE 62; RESP 18
[2023-06-02] MEDS: insulin Lispro (HumaLOG) vial - multi-dose SQ SCH ×2 (09:14→13:53)
[2023-06-02] MEDS: atenolol 25mg tablet PO SCH (09:16)
[2023-06-02] MEDS ORDERED: FLU VACC QS2023-24(6MOS UP)/PF 60 MCG/0.5 ML SYRINGE IM ONE (10:00)
[2023-06-02] MEDS ORDERED: pneumococcal 23-VAL P-sac vacc 25 mcg/0.5ml vial IMVAC ONE (10:00)
[2023-06-02 10:30] VITALS: BP 119/70; PULSE 64; RESP 16; TEMP 97.5; O2SAT 96
[2023-06-02] MEDS: normal saline 1000ml 1,000 ML IV SCH (12:31)
[2023-06-02] MEDS ORDERED: insulin Lispro (HumaLOG) vial - multi-dose SQ STA (12:52)
== END 2023-06-02 14:45 | disposition home or self-care (01) | DRG 639 ==
LOC: ER 10:40 → ED HOLD 13:48 → PCU 3S 20:11
PROVIDERS: ADMIT Internal Medicine; ATTEND Internal Medicine
DX: E11.65 Type 2 diabetes mellitus with hyperglycemia (principal); E66.01 Morbid (severe) obesity due to excess calories; I11.0 Hypertensive heart disease with heart failure; Z68.37 Body mass index [BMI] 37.0-37.9, adult; I50.9 Heart failure, unspecified; J44.9 Chronic obstructive pulmonary disease, unspecified; F10.20 Alcohol dependence, uncomplicated; E78.00 Pure hypercholesterolemia, unspecified; I25.10 Atherosclerotic heart disease of native coronary artery without angina pectoris; Z79.84 Long term (current) use of oral hypoglycemic drugs; Z82.49 Family history of ischemic heart disease and other diseases of the circulatory system
CPT/HCPCS: 36415; 71045; 80053; 81001; 82009; 82948; 83605; 83690; 83735; 83880; 84100; 84145; 84484; 85025; 87040; 87081; 90686; 90732; 93306; 99285; C9113; G0378; J1644; J1815; J7030

== ENCOUNTER 2023-09-20 20:54 | Emergency (ER) | payer OTHER, MEDICARE, MEDICAID ==
[~2023-09-20] VITALS: Ht 160 cm; Wt 94.9 kg
[~2023-09-20 20:54] MED LIST changes: -ALBU6.7H14 INH; -CHLO25CA10 PO; +EMPA25TA PO; +INSU100I31 SQ; +METF-1203 PO; +THIA100T66 PO; -THIA50TA10 PO
[2023-09-20 22:06] LABS: BASOPHILS % (AUTO) 0.4 % (0-1); EOSINOPHILS % (AUTO) 0.9 % (0-6); HEMATOCRIT 44.9 % (42.0-52.0); HEMOGLOBIN 15.3 g/dl (14.0-17.9); LYMPHOCYTES # (AUTO) 1.4 X10'3 (1.1-4.8); LYMPHOCYTES % (AUTO) 24.7 % (21-51); MEAN CORPUSCULAR HEMOGLOBIN 29.8 PG (27.0-31.0); MEAN CORPUSCULAR VOLUME 87.5 FL (78-98); MONOCYTES # (AUTO) 0.4 X10'3 (0-0.9); MONOCYTES % (AUTO) 7.7 % (2-12); NEUTROPHILS # (AUTO) 3.6 X10'3 (1.8-7.7); NEUTROPHILS % (AUTO) 66.3 % (42-75); PLATELET COUNT 180 X10'3 (140-440); RED BLOOD COUNT 5.13 X10'6 (4.70-6.10); RED CELL DISTRIBUTION WIDTH 14.2 % (11.5-14.5); WHITE BLOOD COUNT 5.5 X10'3 (4.5-11.0)
[2023-09-20 22:15] LABS: ANION GAP 14 (8-16); BLOOD UREA NITROGEN 15 MG/DL (7-18); BUN/CREATININE RATIO 16.9 (10.0-20.0); CALCIUM 8.8 MG/DL (8.5-10.1); CHLORIDE 95 MMOL/L (99-107); CREATININE 0.89 MG/DL (0.60-1.10); POTASSIUM 4.9 MMOL/L (3.5-5.1); PRO BRAIN NATRIURETIC PEPTIDE 206 PG/ML (0-125); SODIUM 131 MMOL/L (135-145); TOTAL CARBON DIOXIDE 22.1 MMOL/L (24-32); eCRCL 69 ML/MIN; eGFR 87 ML/MIN
[2023-09-20 22:23] LABS: GLUCOSE 480 MG/DL (70-104)
[2023-09-20] MEDS: normal saline 1000ml 1,000 ML IV ONE (22:31)
[2023-09-20] MEDS: insulin Lispro (HumaLOG) vial - multi-dose SQ ONE (23:08)
[2023-09-20 23:59] LABS: BILIRUBIN,URINE NEGATIVE (Neg); CLARITY,URINE CLEAR (Clear); COLOR,URINE STRAW (Yellow); GLUCOSE, URINE >=1000 mg/dl (Neg); KETONES,URINE 40 mg/dl (Neg); LEUKOCYTE ESTERASE ,URINE NEGATIVE (Neg); NITRITES, URINE NEGATIVE (Neg); OCCULT BLOOD,URINE NEGATIVE (Neg); PROTEIN,URINE NEGATIVE (Neg); UROBILINOGEN,URINE 0.2 E.U/dL (0.2-1.0)
[2023-09-21 00:02] LABS: UA COLLECTION TYPE URINAL
[2023-09-21 00:08] LABS: BACTERIA,URINE NONE SEEN /HPF (Neg); MUCUS STRANDS NONE SEEN /LPF (Neg); RBC,URINE NONE SEEN /HPF (0-2); SQUAMOUS EPITHELIAL CELL,UR FEW /LPF (FEW); WBC,URINE NONE SEEN /HPF (0-4)
[2023-09-21 00:31] VITALS: BP 144/77; PULSE 65; RESP 22; TEMP 98.9; O2SAT 92
== END 2023-09-21 00:33 | disposition home or self-care (01) ==
LOC: ER 20:55
DX: E11.65 Type 2 diabetes mellitus with hyperglycemia (principal); E86.0 Dehydration; R06.00 Dyspnea, unspecified; E78.00 Pure hypercholesterolemia, unspecified; I11.0 Hypertensive heart disease with heart failure; I50.9 Heart failure, unspecified; I25.10 Atherosclerotic heart disease of native coronary artery without angina pectoris; F12.90 Cannabis use, unspecified, uncomplicated; Z72.89 Other problems related to lifestyle; Z79.899 Other long term (current) drug therapy; Z79.4 Long term (current) use of insulin
CPT/HCPCS: 36415; 71045; 80048; 81001; 82948; 83880; 84484; 85025; 93005; 96360; 96361; 96372; 99285; J1815; J7030; 81003

== ENCOUNTER 2023-10-02 17:26 | Emergency (ER) | payer OTHER, MEDICARE, MEDICAID ==
[~2023-10-02] VITALS: Ht 160 cm; Wt 95.5 kg
[2023-10-02 17:47] VITALS: BP 154/82; PULSE 99; RESP 16; TEMP 98.6; O2SAT 94
[2023-10-02 19:05] LABS: BASOPHILS % (AUTO) 0.5 % (0-1); EOSINOPHILS # (AUTO) 0.1 X10'3 (0-0.9); EOSINOPHILS % (AUTO) 1.2 % (0-6); HEMATOCRIT 45.9 % (42.0-52.0); HEMOGLOBIN 15.7 g/dl (14.0-17.9); LYMPHOCYTES # (AUTO) 1.7 X10'3 (1.1-4.8); LYMPHOCYTES % (AUTO) 32.7 % (21-51); MEAN CORPUSCULAR HEMOGLOBIN 30.2 PG (27.0-31.0); MEAN CORPUSCULAR HGB CONC 34.3 g/dL (33.0-36.5); MEAN CORPUSCULAR VOLUME 88.1 FL (78-98); MEAN PLATELET VOLUME 8.2 FL (7.4-10.4); MONOCYTES # (AUTO) 0.4 X10'3 (0-0.9); MONOCYTES % (AUTO) 7.5 % (2-12); NEUTROPHILS # (AUTO) 2.9 X10'3 (1.8-7.7); NEUTROPHILS % (AUTO) 58.1 % (42-75); PLATELET COUNT 137 X10'3 (140-440)
[2023-10-02 19:06] LABS: ALBUMIN 3.5 G/DL (3.4-5.0); ANION GAP 14 (8-16); BLOOD UREA NITROGEN 31 MG/DL (7-18); BUN/CREATININE RATIO 34.1 (10.0-20.0); CALCIUM 8.9 MG/DL (8.5-10.1); CHLORIDE 98 MMOL/L (99-107); CREATININE 0.91 MG/DL (0.60-1.10); LIPASE 39 U/L (16-77); POTASSIUM 4.3 MMOL/L (3.5-5.1); SODIUM 134 MMOL/L (135-145); TOTAL CARBON DIOXIDE 22.4 MMOL/L (24-32); eCRCL 68 ML/MIN; eGFR 84 ML/MIN
[2023-10-02 19:16] LABS: GLUCOSE 448 MG/DL (70-104)
== END 2023-10-02 21:28 | disposition left against medical advice (07) ==
LOC: ER 17:26
DX: R53.83 Other fatigue (principal); R05.9 Cough, unspecified
CPT/HCPCS: 36415; 80048; 82948; 83690; 85025; 99281; 99283

== ENCOUNTER 2023-12-04 12:40 | Emergency (ER) | payer OTHER, MEDICARE, MEDICAID ==
[~2023-12-04] VITALS: Ht 162.6 cm; Wt 93.0 kg
[2023-12-04 13:31] VITALS: TEMP 97.3
[2023-12-04 15:16] LABS: BILIRUBIN,URINE NEGATIVE (Neg); CLARITY,URINE CLEAR (Clear); COLOR,URINE STRAW (Yellow); GLUCOSE, URINE >=1000 mg/dl (Neg); KETONES,URINE TRACE mg/dl (Neg); LEUKOCYTE ESTERASE ,URINE NEGATIVE (Neg); NITRITES, URINE NEGATIVE (Neg); OCCULT BLOOD,URINE NEGATIVE (Neg); PH,URINE 5.5 (4.8-8.0); PROTEIN,URINE NEGATIVE (Neg); UROBILINOGEN,URINE 0.2 E.U/dL (0.2-1.0)
[2023-12-04 15:25] LABS: UA COLLECTION TYPE CLN CATCH MIDSTREAM
[2023-12-04 15:26] LABS: BACTERIA,URINE FEW /HPF (Neg); RBC,URINE 0-2 /HPF (0-2); SQUAMOUS EPITHELIAL CELL,UR FEW /LPF (FEW); WBC,URINE 0-4 /HPF (0-4)
[2023-12-04 15:27] LABS: BASOPHILS % (AUTO) 0.6 % (0-1); EOSINOPHILS # (AUTO) 0.1 X10'3 (0-0.9); EOSINOPHILS % (AUTO) 1.4 % (0-6); HEMATOCRIT 47.9 % (42.0-52.0); HEMOGLOBIN 16.3 g/dl (14.0-17.9); LYMPHOCYTES # (AUTO) 1.2 X10'3 (1.1-4.8); LYMPHOCYTES % (AUTO) 15.8 % (21-51); MEAN CORPUSCULAR HEMOGLOBIN 30.1 PG (27.0-31.0); MEAN CORPUSCULAR HGB CONC 33.9 g/dL (33.0-36.5); MEAN CORPUSCULAR VOLUME 88.6 FL (78-98); MEAN PLATELET VOLUME 7.9 FL (7.4-10.4); MONOCYTES # (AUTO) 0.5 X10'3 (0-0.9); MONOCYTES % (AUTO) 6.5 % (2-12); NEUTROPHILS # (AUTO) 5.8 X10'3 (1.8-7.7); NEUTROPHILS % (AUTO) 75.7 % (42-75); PLATELET COUNT 184 X10'3 (140-440); RED BLOOD COUNT 5.41 X10'6 (4.70-6.10); RED CELL DISTRIBUTION WIDTH 15.6 % (11.5-14.5); WHITE BLOOD COUNT 7.6 X10'3 (4.5-11.0)
[2023-12-04 15:38] LABS: ALANINE AMINOTRANSFERASE 22 U/L (12-78); ALBUMIN 3.3 G/DL (3.4-5.0); ALBUMIN/GLOBULIN RATIO 0.9 (1.1-1.5); ALKALINE PHOSPHATASE 88 IU/L (46-116); ANION GAP 10 (8-16); ASPARTATE AMINO TRANSFERASE 10 U/L (10-37); BILIRUBIN,TOTAL 0.7 MG/DL (0.1-1.0); BLOOD UREA NITROGEN 25 MG/DL (7-18); BUN/CREATININE RATIO 29.4 (10.0-20.0); CALCIUM 9.4 MG/DL (8.5-10.1); CHLORIDE 97 MMOL/L (99-107); CREATININE 0.85 MG/DL (0.60-1.10); GLUCOSE 328 MG/DL (70-104); LIPASE 75 U/L (16-77); SODIUM 133 MMOL/L (135-145); TOTAL CARBON DIOXIDE 25.8 MMOL/L (24-32); TOTAL PROTEIN 7.1 G/DL (6.4-8.2); eCRCL 74 ML/MIN; eGFR > 90 ML/MIN
[2023-12-04] MEDS: normal saline 1000ML IV soln IVB ONE (15:38)
[2023-12-04] MEDS: ondansetron/PF 4mg/2ml inj IV ONE (15:38)
[2023-12-04 15:44] VITALS: BP 127/85; PULSE 69; RESP 19; O2SAT 98
[2023-12-04] MEDS ORDERED: iohexol 300mg/ml 100ml inj. ONE (15:46)
[2023-12-04] MEDS ORDERED: ONDA4TAB12 PO (17:49)
== END 2023-12-04 18:11 | disposition home or self-care (01) ==
LOC: ER 12:41
DX: E86.0 Dehydration (principal); E11.65 Type 2 diabetes mellitus with hyperglycemia; K76.89 Other specified diseases of liver; K52.9 Noninfective gastroenteritis and colitis, unspecified; I11.0 Hypertensive heart disease with heart failure; I50.9 Heart failure, unspecified; E78.00 Pure hypercholesterolemia, unspecified; G47.30 Sleep apnea, unspecified; F12.90 Cannabis use, unspecified, uncomplicated
CPT/HCPCS: 36415; 74177; 80053; 81001; 82948; 83690; 85025; 96361; 96374; 99285; J2405; J3490; J7030; Q9967

== ENCOUNTER 2024-03-25 18:17 | Emergency (ER) | payer OTHER, MEDICARE, MEDICAID ==
[~2024-03-25] VITALS: Ht 162.6 cm; Wt 87.1 kg
[~2024-03-25 18:17] MED LIST changes: -OMEG-220 PO; +OMEG-270 PO; +ONDA-243 PO
[2024-03-25 19:04] LABS: BASOPHILS % (AUTO) 0.5 % (0-1); EOSINOPHILS % (AUTO) 0.7 % (0-6); HEMATOCRIT 47.9 % (42.0-52.0); HEMOGLOBIN 16.2 g/dl (14.0-17.9); LYMPHOCYTES # (AUTO) 1.1 X10'3 (1.1-4.8); MEAN CORPUSCULAR HEMOGLOBIN 30.3 PG (27.0-31.0); MEAN CORPUSCULAR HGB CONC 33.9 g/dL (33.0-36.5); MEAN CORPUSCULAR VOLUME 89.5 FL (78-98); MEAN PLATELET VOLUME 8.1 FL (7.4-10.4); MONOCYTES # (AUTO) 0.4 X10'3 (0-0.9); MONOCYTES % (AUTO) 6.7 % (2-12); NEUTROPHILS # (AUTO) 3.8 X10'3 (1.8-7.7); NEUTROPHILS % (AUTO) 71.1 % (42-75); PLATELET COUNT 184 X10'3 (140-440); RED BLOOD COUNT 5.35 X10'6 (4.70-6.10); RED CELL DISTRIBUTION WIDTH 14.6 % (11.5-14.5); WHITE BLOOD COUNT 5.3 X10'3 (4.5-11.0)
[2024-03-25 19:14] LABS: BILIRUBIN,URINE NEGATIVE (Neg); CLARITY,URINE CLEAR (Clear); COLOR,URINE YELLOW (Yellow); GLUCOSE, URINE >=1000 mg/dl (Neg); KETONES,URINE 15 mg/dl (Neg); LEUKOCYTE ESTERASE ,URINE NEGATIVE (Neg); NITRITES, URINE NEGATIVE (Neg); OCCULT BLOOD,URINE NEGATIVE (Neg); PROTEIN,URINE NEGATIVE (Neg); UROBILINOGEN,URINE 0.2 E.U/dL (0.2-1.0)
[2024-03-25] MEDS: normal saline 1000ml 1,000 ML IV ONE ×2 (19:19→19:59)
[2024-03-25 19:28] LABS: ALANINE AMINOTRANSFERASE 23 U/L (12-78); ALBUMIN 3.3 G/DL (3.4-5.0); ALBUMIN/GLOBULIN RATIO 0.8 (1.1-1.5); ALKALINE PHOSPHATASE 110 IU/L (46-116); ANION GAP 19 (8-16); ASPARTATE AMINO TRANSFERASE 10 U/L (10-37); BILIRUBIN,TOTAL 0.7 MG/DL (0.1-1.0); BLOOD UREA NITROGEN 17 MG/DL (7-18); BUN/CREATININE RATIO 17.2 (10.0-20.0); CALCIUM 9.2 MG/DL (8.5-10.1); CHLORIDE 90 MMOL/L (99-107); CREATININE 0.99 MG/DL (0.60-1.10); POTASSIUM 4.1 MMOL/L (3.5-5.1); SODIUM 128 MMOL/L (135-145); TOTAL PROTEIN 7.3 G/DL (6.4-8.2); eCRCL 64 ML/MIN; eGFR 76 ML/MIN
[2024-03-25] MEDS ORDERED: iohexol 300mg/ml 100ml inj. ONE (19:32)
[2024-03-25 19:36] LABS: UA COLLECTION TYPE NON-SPECIFIED
[2024-03-25 19:41] LABS: WBC,URINE 0-4 /HPF (0-4)
[2024-03-25 19:42] LABS: BACTERIA,URINE NONE SEEN /HPF (Neg); RBC,URINE 0-2 /HPF (0-2); SQUAMOUS EPITHELIAL CELL,UR FEW /LPF (FEW)
[2024-03-25 19:54] LABS: GLUCOSE 710 MG/DL (70-104)
[2024-03-25] MEDS: piperacillin/tazo 3.375gm/50ml 50 ML IV ONE (19:59)
[2024-03-25] MEDS: insulin regular, human 10 units/0.1 ml syringe IV ONE (20:01)
[2024-03-25 21:49] LABS: ALANINE AMINOTRANSFERASE 21 U/L (12-78); ALBUMIN 2.8 G/DL (3.4-5.0); ALBUMIN/GLOBULIN RATIO 0.8 (1.1-1.5); ALKALINE PHOSPHATASE 92 IU/L (46-116); ANION GAP 11 (8-16); ASPARTATE AMINO TRANSFERASE 10 U/L (10-37); BILIRUBIN,TOTAL 0.5 MG/DL (0.1-1.0); BLOOD UREA NITROGEN 15 MG/DL (7-18); CALCIUM 8.4 MG/DL (8.5-10.1); CHLORIDE 100 MMOL/L (99-107); CREATININE 0.75 MG/DL (0.60-1.10); POTASSIUM 3.9 MMOL/L (3.5-5.1); SODIUM 134 MMOL/L (135-145); TOTAL CARBON DIOXIDE 23.4 MMOL/L (24-32); TOTAL PROTEIN 6.3 G/DL (6.4-8.2); eCRCL 84 ML/MIN; eGFR > 90 ML/MIN
[2024-03-25 22:04] LABS: GLUCOSE 459 MG/DL (70-104)
[2024-03-26] MEDS: pantoprazole 40mg Tablet.DR PO ONE (00:18)
[2024-03-26] MEDS ORDERED: OMEP40CA21 PO (00:41)
[2024-03-26 00:46] VITALS: BP 136/83; PULSE 95; RESP 16; TEMP 97.7; O2SAT 96
[2024-03-26] MEDS ORDERED: ONDA-243 PO (00:51)
== END 2024-03-26 01:25 | disposition home or self-care (01) ==
LOC: ER 18:17
DX: R11.10 Vomiting, unspecified (principal); E11.65 Type 2 diabetes mellitus with hyperglycemia; K20.80 Other esophagitis without bleeding; I11.0 Hypertensive heart disease with heart failure; I50.9 Heart failure, unspecified; E78.00 Pure hypercholesterolemia, unspecified; G47.30 Sleep apnea, unspecified; F12.90 Cannabis use, unspecified, uncomplicated; F10.90 Alcohol use, unspecified, uncomplicated; Z20.822 Contact with and (suspected) exposure to COVID-19; Z79.899 Other long term (current) drug therapy; Z79.4 Long term (current) use of insulin; Z79.84 Long term (current) use of oral hypoglycemic drugs
CPT/HCPCS: 36415; 71045; 74177; 80053; 81001; 82948; 83605; 84145; 85025; 87040; 87811; 96361; 96365; 96366; 96375; 99285; J1815; J2543; J7030; Q9967

== ENCOUNTER 2024-11-16 09:16 | Inpatient (IN) | payer OTHER, MEDICARE ==
[~2024-11-16] VITALS: Ht 165.1 cm; Wt 83.3 kg
[2024-11-16 09:40] LABS: BASOPHILS # (AUTO) 0.1 X10'3 (0-0.2); BASOPHILS % (AUTO) 0.6 % (0-1); EOSINOPHILS % (AUTO) 0.2 % (0-6); HEMATOCRIT 55.4 % (42.0-52.0); LYMPHOCYTES # (AUTO) 1.9 X10'3 (1.1-4.8); LYMPHOCYTES % (AUTO) 18.6 % (21-51); MEAN CORPUSCULAR HEMOGLOBIN 31.7 PG (27.0-31.0); MEAN CORPUSCULAR HGB CONC 34.1 g/dL (33.0-36.5); MEAN PLATELET VOLUME 8.2 FL (7.4-10.4); MONOCYTES # (AUTO) 0.4 X10'3 (0-0.9); MONOCYTES % (AUTO) 3.7 % (2-12); NEUTROPHILS # (AUTO) 7.6 X10'3 (1.8-7.7); NEUTROPHILS % (AUTO) 76.9 % (42-75); PLATELET COUNT 222 X10'3 (140-440); RED BLOOD COUNT 5.95 X10'6 (4.70-6.10); WHITE BLOOD COUNT 9.9 X10'3 (4.5-11.0)
[2024-11-16 09:46] LABS: HEMOGLOBIN 18.9 g/dl (14.0-17.9)
[2024-11-16 09:55] LABS: INR 1.2 INR; PROTHROMBIN TIME 12.1 SECONDS (9.0-12.0)
[2024-11-16 10:08] LABS: ALANINE AMINOTRANSFERASE 32 U/L (12-78); ALBUMIN 3.4 G/DL (3.4-5.0); ALBUMIN/GLOBULIN RATIO 0.8 (1.1-1.5); ALKALINE PHOSPHATASE 161 IU/L (46-116); ANION GAP 18 (8-16); ASPARTATE AMINO TRANSFERASE 19 U/L (10-37); BILIRUBIN,TOTAL 1.2 MG/DL (0.1-1.0); BLOOD UREA NITROGEN 6 MG/DL (7-18); BUN/CREATININE RATIO 5.8 (10.0-20.0); CALCIUM 9.2 MG/DL (8.5-10.1); CHLORIDE 101 MMOL/L (99-107); CREATININE 1.03 MG/DL (0.60-1.10); FREE T4 (FREE THYROXINE) 0.97 NG/DL (0.73-1.40); GLUCOSE 176 MG/DL (70-104); PRO BRAIN NATRIURETIC PEPTIDE 7206 PG/ML (0-125); SODIUM 140 MMOL/L (135-145); THYROID STIMULATING HORMONE 2.13 ulU/ml (0.34-4.50); TOTAL CARBON DIOXIDE 21.4 MMOL/L (24-32); TOTAL PROTEIN 7.5 G/DL (6.4-8.2); eCRCL 63 ML/MIN; eGFR 73 ML/MIN
[2024-11-16 10:13] LABS: POTASSIUM 2.8 MMOL/L (3.5-5.1)
[2024-11-16 10:16] LABS: APTT 27 SECONDS (22-32)
[2024-11-16] MEDS: morphine 4 MG/ML inj SYRINge IV ONE (12:30)
[2024-11-16 13:24] LABS: BILIRUBIN,URINE MODERATE (Neg); CLARITY,URINE CLEAR (Clear); GLUCOSE, URINE 500 mg/dl (Neg); KETONES,URINE TRACE mg/dl (Neg); LEUKOCYTE ESTERASE ,URINE NEGATIVE (Neg); OCCULT BLOOD,URINE NEGATIVE (Neg); PROTEIN,URINE 100 mg/dl (Neg)
[2024-11-16 13:27] LABS: COLOR,URINE DARK YELLOW (Yellow); NITRITES, URINE NEGATIVE (Neg); UA COLLECTION TYPE CLN CATCH MIDSTREAM
[2024-11-16 13:35] LABS: BACTERIA,URINE 1+ /HPF (Neg); MUCUS STRANDS MODERATE /LPF (Neg); RBC,URINE NONE SEEN /HPF (0-2); SQUAMOUS EPITHELIAL CELL,UR FEW /LPF (FEW); WBC,URINE 0-4 /HPF (0-4)
[2024-11-16] MEDS ORDERED: iohexol 350MG/ML 100ml bottle IV ONE (13:37)
[2024-11-16] MEDS ORDERED: heparin 10,000 units/1 ML INJ IV ONE (14:05)
[2024-11-16 14:26] LABS: MAGNESIUM 1.4 MG/DL (1.5-2.4)
[2024-11-16] MEDS: heparin 25,000 UNIT/250ml bag 250 ML IV PRN (14:35)
[2024-11-16] MEDS: heparin 10,000 units/1 ML INJ IV ONE (14:52)
[2024-11-16] MEDS: ringers solution, lacted 1,000 ML IV ONE (14:54)
[2024-11-16] MEDS: MESSAGE TO NURSING IV ONE ×2 (14:54→21:52)
[2024-11-16 15:45] LABS: D-DIMER 9.02 MG/L FEU (0-0.50); FIBRINOGEN 402 MG/DL (177-424)
[2024-11-16] MEDS ORDERED: ondansetron/PF 4mg/2ml inj IV PRN (15:45)
[2024-11-16] MEDS ORDERED: haloperidol 5mg tablet PO PRN (15:45)
[2024-11-16] MEDS ORDERED: potassium Cl 20 mEq SR tablet PO PRN ×4 (15:45)
[2024-11-16] MEDS ORDERED: acetaminophen 325mg tablet PO PRN (15:45)
[2024-11-16] MEDS ORDERED: magnesium sulf-water 2g/50mL 50 ML IV PRN ×2 (15:45)
[2024-11-16] MEDS ORDERED: haloperidol lactate 5mg/ml inj IM PRN (15:45)
[2024-11-16] MEDS ORDERED: magnesium hydroxide 30ml (MOM) UD suspension PO PRN (15:45)
[2024-11-16] MEDS ORDERED: magnesium Cl slow-release 64mg tablet PO PRN (15:45)
[2024-11-16] MEDS ORDERED: LORazepam 2 mg/ml vial IV PRN (15:45)
[2024-11-16] MEDS ORDERED: magnesium sulf-water 4G/100mL 100 ML IV PRN ×2 (15:45)
[2024-11-16] MEDS ORDERED: potassium Cl 40MEQ/1/2NS 520ml 520 ML IV PRN ×2 (15:45)
[2024-11-16] MEDS ORDERED: mag hydrox/Alum hydrox/simeth 30ml oral suspension PO PRN (15:45)
[2024-11-16 15:53] LABS: ETHANOL < 10 MG/DL (<10)
[2024-11-16] MEDS ORDERED: diazepam inj 5 MG/ML inj. IV PRN (16:05)
[2024-11-16] MEDS: diazepam 5mg tablet PO ONE (16:23)
[2024-11-16] MEDS: potassium Cl 20mEq/100mL bag 100 ML IV ONE (16:24)
[2024-11-16 16:49] LABS: HEMOGLOBIN A1C 8.9 % (4.5-6.2)
[2024-11-16] MEDS ORDERED: furosemide 10 MG/1 ML 10ml inj IV SCH (17:00)
[2024-11-16 17:50] VITALS: BP 148/102; PULSE 97; RESP 25; TEMP 97.3; O2SAT 95
[2024-11-16 18:00] VITALS: BP 147/74; PULSE 85; RESP 20; TEMP 97.1; O2SAT 93
[2024-11-16] MEDS ORDERED: glucagon, human recombinant 1mg kit SUBCUT PRN (18:30)
[2024-11-16] MEDS ORDERED: DEXTROSE 15 GM of carb/4 tabs (each vial/BOTTLE has 4 tablets) PO PRN ×2 (18:30)
[2024-11-16] MEDS ORDERED: dextrose 50%-water 50ml dispensing syringe IV PRN ×2 (18:30)
[2024-11-16 20:00] VITALS: RESP 18; O2SAT 93
[2024-11-16] MEDS ORDERED: K and/or MAG REPLACEMENT MC SCH (20:00)
[2024-11-16] MEDS: K and/or MAG REPLACEMENT MC SCH (20:00)
[2024-11-16] MEDS: INSULIN LISPRO 100 UNIT/ML INSULN.PEN MULTI-DOSE SQ SCH (21:21)
[2024-11-16] MEDS: insulin glargine (Lantus) pen - multi-dose SQ SCH (21:23)
[2024-11-16] MEDS: docusate sod 100mg capsule PO SCH (21:25)
[2024-11-16 22:00] VITALS: BP 120/75; PULSE 96; RESP 20; TEMP 97.3; O2SAT 94
[2024-11-16] MEDS: zolpidem 5mg tablet PO PRN (23:45)
[2024-11-17 02:00] VITALS: BP 115/72; PULSE 95; RESP 22; TEMP 97.6; O2SAT 93
[2024-11-17 04:34] LABS: BASOPHILS % (AUTO) 0.7 % (0-1); EOSINOPHILS % (AUTO) 0.7 % (0-6); HEMATOCRIT 48.7 % (42.0-52.0); LYMPHOCYTES # (AUTO) 1.8 X10'3 (1.1-4.8); LYMPHOCYTES % (AUTO) 31.5 % (21-51); MEAN CORPUSCULAR HEMOGLOBIN 32.2 PG (27.0-31.0); MEAN CORPUSCULAR HGB CONC 34.9 g/dL (33.0-36.5); MEAN CORPUSCULAR VOLUME 92.3 FL (78-98); MONOCYTES # (AUTO) 0.4 X10'3 (0-0.9); MONOCYTES % (AUTO) 6.7 % (2-12); NEUTROPHILS # (AUTO) 3.4 X10'3 (1.8-7.7); NEUTROPHILS % (AUTO) 60.4 % (42-75); PLATELET COUNT 153 X10'3 (140-440); RED BLOOD COUNT 5.27 X10'6 (4.70-6.10); RED CELL DISTRIBUTION WIDTH 14.5 % (11.5-14.5); WHITE BLOOD COUNT 5.7 X10'3 (4.5-11.0)
[2024-11-17 04:50] LABS: ALBUMIN 2.8 G/DL (3.4-5.0); ANION GAP 8 (8-16); BLOOD UREA NITROGEN 7 MG/DL (7-18); BUN/CREATININE RATIO 8.6 (10.0-20.0); CALCIUM 8.6 MG/DL (8.5-10.1); CHLORIDE 103 MMOL/L (99-107); CHOL/HDL RATIO 5.7 (0.00-4.99); CHOLESTEROL 200 MG/DL (0-200); CREATININE 0.81 MG/DL (0.60-1.10); GLUCOSE 129 MG/DL (70-104); HDL CHOLESTEROL 35 MG/DL (35-60); LDL CHOLESTEROL 122 MG/DL (50-100); MAGNESIUM 1.4 MG/DL (1.5-2.4); POTASSIUM 3.5 MMOL/L (3.5-5.1); SODIUM 139 MMOL/L (135-145); TOTAL CARBON DIOXIDE 27.8 MMOL/L (24-32); TRIGLYCERIDES 282 MG/DL (20-135); eCRCL 80 ML/MIN; eGFR > 90 ML/MIN
[2024-11-17] MEDS ORDERED: MESSAGE TO NURSING IV ONE (05:10)
[2024-11-17] MEDS: heparin 10,000 units/1 ML INJ IV PRN (05:24)
[2024-11-17] MEDS: MESSAGE TO NURSING IV ONE ×3 (05:29→18:04)
[2024-11-17 06:00] VITALS: BP 128/93; PULSE 87; RESP 19; TEMP 97.9; O2SAT 93
[2024-11-17] MEDS ORDERED: ESCITALOPRAM 10 mg tablet 10 MG TABLET PO SCH (08:00)
[2024-11-17] MEDS: furosemide 20 MG/2 ML vial IV SCH (08:33)
[2024-11-17] MEDS: cyanocobalamin 500mcg tablet PO SCH (08:33)
[2024-11-17] MEDS: atorvastatin 20mg tablet PO SCH (08:34)
[2024-11-17] MEDS: pantoprazole 40mg Tablet.DR PO SCH (08:34)
[2024-11-17] MEDS: carVEDilol 12.5mg tablet PO SCH (08:35)
[2024-11-17] MEDS: losartan 25mg tablet PO SCH (08:35)
[2024-11-17] MEDS: multivitamins, therapeutics tablet PO SCH (08:35)
[2024-11-17] MEDS: EMPAGLIFLOZIN 25 MG TABLET PO SCH (08:36)
[2024-11-17 10:00] VITALS: BP 102/84; PULSE 101; RESP 20; TEMP 97.6; O2SAT 93
[2024-11-17] MEDS: magnesium Cl slow-release 64mg tablet PO PRN (12:32)
[2024-11-17 12:37] VITALS: RESP 18; O2SAT 96
[2024-11-17 17:39] LABS: APTT 46 SECONDS (22-32)
[2024-11-17 20:00] VITALS: RESP 20; O2SAT 98
[2024-11-17 23:43] LABS: APTT 48 SECONDS (22-32)
[2024-11-18] MEDS: MESSAGE TO NURSING IV ONE ×3 (00:25→12:56)
[2024-11-18 06:00] VITALS: BP 117/72; PULSE 56; RESP 14; TEMP 97.4; O2SAT 98
[2024-11-18 06:01] LABS: BASOPHILS # (AUTO) 0.1 X10'3 (0-0.2); BASOPHILS % (AUTO) 0.8 % (0-1); EOSINOPHILS % (AUTO) 0.7 % (0-6); HEMATOCRIT 46.8 % (42.0-52.0); HEMOGLOBIN 16.2 g/dl (14.0-17.9); MEAN CORPUSCULAR HGB CONC 34.7 g/dL (33.0-36.5); MEAN CORPUSCULAR VOLUME 92.2 FL (78-98); MEAN PLATELET VOLUME 8.2 FL (7.4-10.4); MONOCYTES # (AUTO) 0.4 X10'3 (0-0.9); MONOCYTES % (AUTO) 5.6 % (2-12); NEUTROPHILS # (AUTO) 3.8 X10'3 (1.8-7.7); NEUTROPHILS % (AUTO) 60.9 % (42-75); PLATELET COUNT 180 X10'3 (140-440); RED BLOOD COUNT 5.07 X10'6 (4.70-6.10); RED CELL DISTRIBUTION WIDTH 14.1 % (11.5-14.5); WHITE BLOOD COUNT 6.3 X10'3 (4.5-11.0)
[2024-11-18 06:13] LABS: ALBUMIN 2.9 G/DL (3.4-5.0); ANION GAP 9 (8-16); BLOOD UREA NITROGEN 9 MG/DL (7-18); BUN/CREATININE RATIO 10.2 (10.0-20.0); CALCIUM 8.9 MG/DL (8.5-10.1); CHLORIDE 101 MMOL/L (99-107); CREATININE 0.88 MG/DL (0.60-1.10); GLUCOSE 151 MG/DL (70-104); MAGNESIUM 1.6 MG/DL (1.5-2.4); POTASSIUM 3.7 MMOL/L (3.5-5.1); SODIUM 137 MMOL/L (135-145); TOTAL CARBON DIOXIDE 26.8 MMOL/L (24-32); eCRCL 74 ML/MIN; eGFR 87 ML/MIN
[2024-11-18 08:00] VITALS: RESP 18; O2SAT 96
[2024-11-18] MEDS: JUVEN Shake w/Arg/Glut/Ca2+Bmb (Juven 19.3gm) pkt 240ml PO SCH (08:00)
[2024-11-18 11:00] VITALS: BP 121/72; PULSE 68; RESP 18; TEMP 97.9; O2SAT 96
[2024-11-18] MEDS ORDERED: APIX5TAB3 PO (15:04)
[2024-11-18] MEDS ORDERED: LORazepam 2 mg/ml vial IV PRN (15:45)
[2024-11-18] MEDS ORDERED: LORazepam 1 MG tablet PO PRN (15:45)
[2024-11-20] MEDS ORDERED: thiamine 100mg tablet PO SCH (08:00)
[2024-11-20] MEDS ORDERED: LORazepam 1 MG tablet PO PRN (15:45)
[2024-11-20] MEDS ORDERED: LORazepam 2 mg/ml vial IV PRN (15:45)
[2024-11-21] MEDS ORDERED: folic acid 1mg tablet PO SCH (08:00)
== END 2024-11-18 16:39 | disposition home or self-care (01) | DRG 175 ==
LOC: ER 09:17 → ED HOLD 15:07 → PCU 3S 17:51
PROVIDERS: ADMIT Internal Medicine; ATTEND Internal Medicine
PROC: B32T1ZZ Computerized Tomography (CT Scan) of Left Pulmonary Artery using Low Osmolar Contrast (ICD-10-PCS; principal; 2024-11-16)
PROC: B3201ZZ Computerized Tomography (CT Scan) of Thoracic Aorta using Low Osmolar Contrast (ICD-10-PCS; 2024-11-16)
PROC: B32S1ZZ Computerized Tomography (CT Scan) of Right Pulmonary Artery using Low Osmolar Contrast (ICD-10-PCS; 2024-11-16)
DX: I26.92 Saddle embolus of pulmonary artery without acute cor pulmonale (principal); I50.33 Acute on chronic diastolic (congestive) heart failure; I11.0 Hypertensive heart disease with heart failure; E11.9 Type 2 diabetes mellitus without complications; E78.00 Pure hypercholesterolemia, unspecified; E87.6 Hypokalemia; F10.90 Alcohol use, unspecified, uncomplicated; G47.33 Obstructive sleep apnea (adult) (pediatric); I25.10 Atherosclerotic heart disease of native coronary artery without angina pectoris; Z82.49 Family history of ischemic heart disease and other diseases of the circulatory system; Z79.4 Long term (current) use of insulin; Z79.899 Other long term (current) drug therapy; Z79.84 Long term (current) use of oral hypoglycemic drugs; Z87.891 Personal history of nicotine dependence
CPT/HCPCS: 36415; 71045; 71275; 80048; 80053; 80061; 80320; 81001; 82948; 83036; 83605; 83735; 83880; 84132; 84439; 84443; 84484; 85025; 85379; 85384; 85610; 85730; 87081; 87502; 87503; 93005; 93306; 93970; 96374; 96375; 99291; A4615; G0378; J1644; J1815; J1940; J2270; J3480; J7120; Q9967

== ENCOUNTER 2024-11-19 12:55 | Inpatient (IN) | payer OTHER, MEDICARE ==
[~2024-11-19] VITALS: Ht 165.1 cm; Wt 82.9 kg
[~2024-11-19 12:55] MED LIST changes: +APIX5TAB3 PO
[2024-11-19] MEDS ORDERED: iohexol 350MG/ML 100ml bottle IV ONE (13:39)
[2024-11-19 13:40] LABS: BASOPHILS % (AUTO) 0.9 % (0-1); EOSINOPHILS % (AUTO) 0.8 % (0-6); HEMATOCRIT 45.4 % (42.0-52.0); HEMOGLOBIN 15.9 g/dl (14.0-17.9); LYMPHOCYTES # (AUTO) 1.3 X10'3 (1.1-4.8); LYMPHOCYTES % (AUTO) 22.3 % (21-51); MEAN CORPUSCULAR HEMOGLOBIN 31.7 PG (27.0-31.0); MEAN CORPUSCULAR HGB CONC 34.9 g/dL (33.0-36.5); MEAN CORPUSCULAR VOLUME 90.8 FL (78-98); MEAN PLATELET VOLUME 8.5 FL (7.4-10.4); MONOCYTES # (AUTO) 0.4 X10'3 (0-0.9); MONOCYTES % (AUTO) 7.6 % (2-12); NEUTROPHILS # (AUTO) 3.9 X10'3 (1.8-7.7); NEUTROPHILS % (AUTO) 68.4 % (42-75); PLATELET COUNT 189 X10'3 (140-440); RED CELL DISTRIBUTION WIDTH 14.4 % (11.5-14.5); WHITE BLOOD COUNT 5.7 X10'3 (4.5-11.0)
[2024-11-19 13:53] LABS: APTT 30 SECONDS (22-32); INR 1.3 INR; PROTHROMBIN TIME 12.6 SECONDS (9.0-12.0)
[2024-11-19 13:55] LABS: ALANINE AMINOTRANSFERASE 27 U/L (12-78); ALBUMIN 3.2 G/DL (3.4-5.0); ALKALINE PHOSPHATASE 112 IU/L (46-116); ANION GAP 9 (8-16); ASPARTATE AMINO TRANSFERASE 22 U/L (10-37); BILIRUBIN,TOTAL 1.3 MG/DL (0.1-1.0); BLOOD UREA NITROGEN 7 MG/DL (7-18); BUN/CREATININE RATIO 8.1 (10.0-20.0); CALCIUM 8.7 MG/DL (8.5-10.1); CHLORIDE 102 MMOL/L (99-107); CREATININE 0.86 MG/DL (0.60-1.10); GLUCOSE 204 MG/DL (70-104); POTASSIUM 3.6 MMOL/L (3.5-5.1); SODIUM 135 MMOL/L (135-145); TOTAL CARBON DIOXIDE 23.8 MMOL/L (24-32); TOTAL PROTEIN 6.5 G/DL (6.4-8.2); eCRCL 75 ML/MIN; eGFR 90 ML/MIN
[2024-11-19 14:02] LABS: PRO BRAIN NATRIURETIC PEPTIDE 1097 PG/ML (0-125)
[2024-11-19] MEDS ORDERED: potassium Cl 20 mEq SR tablet PO PRN (14:45)
[2024-11-19] MEDS ORDERED: magnesium sulf-water 4G/100mL 100 ML IV PRN (14:45)
[2024-11-19] MEDS ORDERED: morphine 2 MG/ML inj. syringe IV PRN (14:45)
[2024-11-19] MEDS ORDERED: magnesium Cl slow-release 64mg tablet PO PRN (14:45)
[2024-11-19] MEDS ORDERED: acetaminophen 325mg tablet PO PRN (14:45)
[2024-11-19] MEDS: meclizine 12.5mg tablet PO ONE (14:48)
[2024-11-19] MEDS: LORazepam 1 MG tablet PO ONE (14:48)
[2024-11-19] MEDS: heparin 25,000 UNIT/250ml bag 250 ML IV PRN (15:11)
[2024-11-19 17:00] VITALS: BP 157/92; PULSE 80; RESP 11; TEMP 98.1; O2SAT 96
[2024-11-19 17:30] VITALS: RESP 11; O2SAT 96
[2024-11-19 19:00] VITALS: BP 158/92; PULSE 93; RESP 16; TEMP 98.1; O2SAT 96
[2024-11-19 20:00] VITALS: RESP 16; O2SAT 96
[2024-11-19] MEDS: K and/or MAG REPLACEMENT MC SCH (20:00)
[2024-11-19] MEDS: HYDROcodone/acetaminophen 5mg/325mg tablet PO PRN (20:28)
[2024-11-19] MEDS: famotidine 20mg tablet PO SCH (21:00)
[2024-11-19] MEDS ORDERED: heparin 10,000 units/1 ML INJ IV PRN (21:55)
[2024-11-19 22:00] VITALS: BP 142/85; PULSE 94; RESP 24; TEMP 99.8; O2SAT 97
[2024-11-19] MEDS ORDERED: MESSAGE TO NURSING IV ONE (22:00)
[2024-11-19] MEDS: MESSAGE TO NURSING IV ONE (22:23)
[2024-11-20] VITALS (11 sets, daily range): BP systolic 115–151; BP diastolic 69–97; PULSE 99–128; RESP 19–31; TEMP 97.2–100.7; O2SAT 93–98
[2024-11-20 02:38] LABS: BASOPHILS % (AUTO) 0.4 % (0-1); EOSINOPHILS % (AUTO) 0 % (0-6); HEMATOCRIT 45.6 % (42.0-52.0); HEMOGLOBIN 16.2 g/dl (14.0-17.9); LYMPHOCYTES # (AUTO) 0.8 X10'3 (1.1-4.8); LYMPHOCYTES % (AUTO) 10.2 % (21-51); MEAN CORPUSCULAR HEMOGLOBIN 32.2 PG (27.0-31.0); MEAN CORPUSCULAR HGB CONC 35.5 g/dL (33.0-36.5); MEAN CORPUSCULAR VOLUME 90.8 FL (78-98); MEAN PLATELET VOLUME 8.3 FL (7.4-10.4); MONOCYTES # (AUTO) 0.4 X10'3 (0-0.9); NEUTROPHILS # (AUTO) 7.1 X10'3 (1.8-7.7); NEUTROPHILS % (AUTO) 84.4 % (42-75); PLATELET COUNT 158 X10'3 (140-440); RED BLOOD COUNT 5.02 X10'6 (4.70-6.10); RED CELL DISTRIBUTION WIDTH 13.9 % (11.5-14.5); WHITE BLOOD COUNT 8.4 X10'3 (4.5-11.0)
[2024-11-20 02:50] LABS: ANION GAP 19 (8-16); BLOOD UREA NITROGEN 7 MG/DL (7-18); CALCIUM 8.4 MG/DL (8.5-10.1); CHLORIDE 100 MMOL/L (99-107); CREATININE 0.87 MG/DL (0.60-1.10); GLUCOSE 183 MG/DL (70-104); MAGNESIUM 1.3 MG/DL (1.5-2.4); POTASSIUM 3.6 MMOL/L (3.5-5.1); SODIUM 138 MMOL/L (135-145); eCRCL 75 ML/MIN; eGFR 88 ML/MIN
[2024-11-20] MEDS: MESSAGE TO NURSING IV ONE ×4 (03:06→18:39)
[2024-11-20 05:33] LABS: BILIRUBIN,URINE MODERATE (Neg); CLARITY,URINE CLEAR (Clear); COLOR,URINE YELLOW (Yellow); GLUCOSE, URINE >=1000 mg/dl (Neg); KETONES,URINE 40 mg/dl (Neg); LEUKOCYTE ESTERASE ,URINE NEGATIVE (Neg); NITRITES, URINE NEGATIVE (Neg); OCCULT BLOOD,URINE NEGATIVE (Neg); PROTEIN,URINE NEGATIVE (Neg); UROBILINOGEN,URINE 0.2 E.U/dL (0.2-1.0)
[2024-11-20 05:46] LABS: UA COLLECTION TYPE CLN CATCH MIDSTREAM; WBC,URINE 0-4 /HPF (0-4)
[2024-11-20 05:47] LABS: BACTERIA,URINE FEW /HPF (Neg); RBC,URINE NONE SEEN /HPF (0-2); SQUAMOUS EPITHELIAL CELL,UR NONE SEEN /LPF (FEW)
[2024-11-20] MEDS: atorvastatin 20mg tablet PO SCH (08:15)
[2024-11-20] MEDS ORDERED: LORazepam 2 mg/ml vial IV PRN ×3 (09:50→23:05)
[2024-11-20] MEDS ORDERED: haloperidol 5mg tablet PO PRN (09:50)
[2024-11-20] MEDS ORDERED: glucagon, human recombinant 1mg kit SUBCUT PRN (10:00)
[2024-11-20] MEDS ORDERED: DEXTROSE 15 GM of carb/4 tabs (each vial/BOTTLE has 4 tablets) PO PRN ×2 (10:00)
[2024-11-20] MEDS ORDERED: dextrose 50%-water 50ml dispensing syringe IV PRN ×2 (10:00)
[2024-11-20] MEDS: diazepam inj 5 MG/ML inj. IV PRN (11:18)
[2024-11-20] MEDS: INSULIN LISPRO 100 UNIT/ML INSULN.PEN MULTI-DOSE SQ SCH (13:02)
[2024-11-20] MEDS: folic acid 1mg/0.2ml inj IV SCH (13:05)
[2024-11-20] MEDS: thiamine 100mg/ml 2ml inj. IV SCH (13:06)
[2024-11-20] MEDS ORDERED: labetalol 20mg/4ml (5mg/ml) syringe IV PRN (14:50)
[2024-11-20 17:26] LABS: URINE AMPHETAMINE SCREEN NEGATIVE (Neg); URINE BARBITUATE SCREEN NEGATIVE (Neg); URINE BENZODIAZEPINES SCREEN NEGATIVE (Neg); URINE CANNABINOID SCREEN POSITIVE (Neg); URINE COCAINE SCREEN NEGATIVE (Neg); URINE METHADONE SCREEN NEGATIVE (Neg); URINE OPIATE SCREEN POSITIVE (Neg); URINE PHENCYCLIDINE SCREEN NEGATIVE (Neg)
[2024-11-20] MEDS: diazepam inj 5 MG/ML inj. IV ONE (18:39)
[2024-11-20] MEDS: insulin glargine (Lantus) pen - multi-dose SQ SCH (21:00)
[2024-11-20] MEDS: insulin glargine (Lantus) VIAL- multi-dose SQ ONE (21:25)
[2024-11-21] VITALS (8 sets, daily range): BP systolic 110–147; BP diastolic 51–87; PULSE 107–118; RESP 16–34; TEMP 97.6–98.9; O2SAT 89–97
[2024-11-21] MEDS: MESSAGE TO NURSING IV ONE ×2 (00:57→08:16)
[2024-11-21] MEDS: haloperidol lactate 5mg/ml inj IM ONE ×2 (03:00→13:56)
[2024-11-21] MEDS: magnesium sulf-water 2g/50mL 50 ML IV PRN (04:12)
[2024-11-21 07:46] LABS: BASOPHILS # (AUTO) 0.1 X10'3 (0-0.2); BASOPHILS % (AUTO) 0.8 % (0-1); EOSINOPHILS # (AUTO) 0.2 X10'3 (0-0.9); EOSINOPHILS % (AUTO) 2.1 % (0-6); HEMOGLOBIN 16.6 g/dl (14.0-17.9); LYMPHOCYTES # (AUTO) 1.3 X10'3 (1.1-4.8); LYMPHOCYTES % (AUTO) 13.6 % (21-51); MEAN CORPUSCULAR HEMOGLOBIN 31.8 PG (27.0-31.0); MEAN CORPUSCULAR HGB CONC 34.6 g/dL (33.0-36.5); MEAN PLATELET VOLUME 9.6 FL (7.4-10.4); MONOCYTES # (AUTO) 0.8 X10'3 (0-0.9); MONOCYTES % (AUTO) 8.3 % (2-12); NEUTROPHILS # (AUTO) 7.2 X10'3 (1.8-7.7); NEUTROPHILS % (AUTO) 75.2 % (42-75); PLATELET COUNT 173 X10'3 (140-440); RED BLOOD COUNT 5.22 X10'6 (4.70-6.10); RED CELL DISTRIBUTION WIDTH 14.1 % (11.5-14.5); WHITE BLOOD COUNT 9.6 X10'3 (4.5-11.0)
[2024-11-21 07:57] LABS: ALBUMIN 2.8 G/DL (3.4-5.0); ANION GAP 17 (8-16); BLOOD UREA NITROGEN 7 MG/DL (7-18); BUN/CREATININE RATIO 7.6 (10.0-20.0); CALCIUM 8.5 MG/DL (8.5-10.1); CHLORIDE 100 MMOL/L (99-107); CREATININE 0.92 MG/DL (0.60-1.10); GLUCOSE 178 MG/DL (70-104); MAGNESIUM 1.9 MG/DL (1.5-2.4); SODIUM 135 MMOL/L (135-145); TOTAL CARBON DIOXIDE 18.1 MMOL/L (24-32); eCRCL 71 ML/MIN; eGFR 83 ML/MIN
[2024-11-21] MEDS ORDERED: heparin 10,000 units/1 ML INJ IV PRN (08:10)
[2024-11-21 09:11] LABS: ALANINE AMINOTRANSFERASE 21 U/L (12-78); ALBUMIN/GLOBULIN RATIO 0.7 (1.1-1.5); ALKALINE PHOSPHATASE 98 IU/L (46-116); BILIRUBIN,TOTAL 1.7 MG/DL (0.1-1.0); TOTAL PROTEIN 6.6 G/DL (6.4-8.2)
[2024-11-21 09:18] LABS: ASPARTATE AMINO TRANSFERASE 33 U/L (10-37); POTASSIUM 3.7 MMOL/L (3.5-5.1)
[2024-11-21] MEDS: apixaban 5mg tablet PO SCH (20:10)
[2024-11-22 02:00] VITALS: BP 115/77; PULSE 103; RESP 16; TEMP 97.7; O2SAT 95
[2024-11-22 06:00] VITALS: BP 140/74; PULSE 95; RESP 24; TEMP 97.4; O2SAT 98
[2024-11-22 06:28] LABS: BASOPHILS # (AUTO) 0.1 X10'3 (0-0.2); BASOPHILS % (AUTO) 0.7 % (0-1); EOSINOPHILS % (AUTO) 0.3 % (0-6); HEMATOCRIT 45.6 % (42.0-52.0); HEMOGLOBIN 15.9 g/dl (14.0-17.9); LYMPHOCYTES # (AUTO) 1.3 X10'3 (1.1-4.8); LYMPHOCYTES % (AUTO) 18.1 % (21-51); MEAN CORPUSCULAR HEMOGLOBIN 31.7 PG (27.0-31.0); MEAN CORPUSCULAR HGB CONC 34.8 g/dL (33.0-36.5); MEAN PLATELET VOLUME 8.5 FL (7.4-10.4); MONOCYTES # (AUTO) 0.7 X10'3 (0-0.9); MONOCYTES % (AUTO) 10.6 % (2-12); NEUTROPHILS # (AUTO) 4.9 X10'3 (1.8-7.7); NEUTROPHILS % (AUTO) 70.3 % (42-75); PLATELET COUNT 156 X10'3 (140-440); RED BLOOD COUNT 5.01 X10'6 (4.70-6.10); RED CELL DISTRIBUTION WIDTH 13.7 % (11.5-14.5)
[2024-11-22 06:49] LABS: ALBUMIN 2.6 G/DL (3.4-5.0); ANION GAP 13 (8-16); BLOOD UREA NITROGEN 6 MG/DL (7-18); BUN/CREATININE RATIO 8.7 (10.0-20.0); CALCIUM 8.3 MG/DL (8.5-10.1); CHLORIDE 101 MMOL/L (99-107); CREATININE 0.69 MG/DL (0.60-1.10); GLUCOSE 153 MG/DL (70-104); MAGNESIUM 1.8 MG/DL (1.5-2.4); POTASSIUM 3.2 MMOL/L (3.5-5.1); SODIUM 136 MMOL/L (135-145); TOTAL CARBON DIOXIDE 21.7 MMOL/L (24-32); eCRCL 94 ML/MIN; eGFR > 90 ML/MIN
[2024-11-22] MEDS: potassium Cl 40MEQ/1/2NS 520ml 520 ML IV PRN (07:59)
[2024-11-22 08:00] VITALS: RESP 22; O2SAT 98
[2024-11-22] MEDS ORDERED: LORazepam 1 MG tablet PO PRN (09:50)
[2024-11-22] MEDS: potassium Cl 20 mEq SR tablet PO PRN (10:11)
[2024-11-22] MEDS: LORazepam 1 MG tablet PO PRN (12:02)
[2024-11-22] MEDS ORDERED: iohexol 350MG/ML 100ml bottle IV ONE ×2 (12:22→13:39)
[2024-11-22 13:03] LABS: APTT 38 SECONDS (22-32); INR 2.2 INR
[2024-11-22] MEDS: HEPARIN DRIP DVT/PE -**PHARMACIST TO DOSE IV ONE (13:35)
[2024-11-22] MEDS ORDERED: heparin 10,000 units/1 ML INJ IV PRN (13:50)
[2024-11-22] MEDS: HEPARIN DRIP INITAL BOLUS --- DO NOT GIVE/ORDER MC ONE (13:50)
[2024-11-22 14:15] LABS: PROTHROMBIN TIME 20.8 SECONDS (9.0-12.0)
[2024-11-22] MEDS: MESSAGE TO NURSING IV ONE ×3 (14:51→22:19)
[2024-11-22 15:00] VITALS: BP 139/73; PULSE 82; RESP 13; TEMP 98.8; O2SAT 96
[2024-11-22] MEDS: heparin 25,000 UNIT/250ml bag 250 ML IV PRN (15:04)
[2024-11-22 18:00] VITALS: BP 129/77; PULSE 116; RESP 24; TEMP 98.3; O2SAT 96
[2024-11-22 20:00] VITALS: RESP 16; O2SAT 96
[2024-11-22] MEDS: normal saline 1000ml 1,000 ML IV SCH (20:38)
[2024-11-22] MEDS: midazolam 1 mg/ML 2ml injection IV ONE (21:32)
[2024-11-22] MEDS: insulin glargine (Lantus) pen - multi-dose SQ SCH (22:59)
[2024-11-23] VITALS (8 sets, daily range): BP systolic 137–196; BP diastolic 48–117; PULSE 94–130; RESP 20–45; TEMP 97.8–99.8; O2SAT 94–97
[2024-11-23] MEDS: haloperidol lactate 5mg/ml inj IM ONE (01:10)
[2024-11-23 04:02] LABS: BASOPHILS # (AUTO) 0.1 X10'3 (0-0.2); BASOPHILS % (AUTO) 1.2 % (0-1); EOSINOPHILS % (AUTO) 0.2 % (0-6); HEMATOCRIT 43.4 % (42.0-52.0); HEMOGLOBIN 14.7 g/dl (14.0-17.9); LYMPHOCYTES # (AUTO) 1.1 X10'3 (1.1-4.8); LYMPHOCYTES % (AUTO) 20.8 % (21-51); MEAN CORPUSCULAR HEMOGLOBIN 31.4 PG (27.0-31.0); MEAN CORPUSCULAR VOLUME 92.3 FL (78-98); MEAN PLATELET VOLUME 8.8 FL (7.4-10.4); MONOCYTES # (AUTO) 0.7 X10'3 (0-0.9); MONOCYTES % (AUTO) 12.4 % (2-12); NEUTROPHILS # (AUTO) 3.6 X10'3 (1.8-7.7); NEUTROPHILS % (AUTO) 65.4 % (42-75); PLATELET COUNT 173 X10'3 (140-440); WHITE BLOOD COUNT 5.5 X10'3 (4.5-11.0)
[2024-11-23 04:11] LABS: ALBUMIN 2.2 G/DL (3.4-5.0); ANION GAP 13 (8-16); BLOOD UREA NITROGEN 5 MG/DL (7-18); BUN/CREATININE RATIO 7.7 (10.0-20.0); CALCIUM 7.2 MG/DL (8.5-10.1); CHLORIDE 107 MMOL/L (99-107); CREATININE 0.65 MG/DL (0.60-1.10); GLUCOSE 127 MG/DL (70-104); MAGNESIUM 1.4 MG/DL (1.5-2.4); POTASSIUM 3.3 MMOL/L (3.5-5.1); SODIUM 139 MMOL/L (135-145); TOTAL CARBON DIOXIDE 18.8 MMOL/L (24-32); eCRCL 100 ML/MIN; eGFR > 90 ML/MIN
[2024-11-23] MEDS: MESSAGE TO NURSING IV ONE ×3 (05:42→17:32)
[2024-11-23] MEDS ORDERED: magnesium Cl slow-release 64mg tablet PO PRN (09:50)
[2024-11-23] MEDS ORDERED: potassium Cl 20 mEq SR tablet PO PRN ×2 (09:50)
[2024-11-23] MEDS: magnesium sulf-water 2g/50mL 50 ML IV PRN (10:29)
[2024-11-23] MEDS: potassium Cl 40MEQ/1/2NS 520ml 520 ML IV PRN (12:21)
[2024-11-23] MEDS: magnesium sulf-water 4G/100mL 100 ML IV PRN (17:33)
[2024-11-24] MEDS: MESSAGE TO NURSING IV ONE ×2 (01:00→07:40)
[2024-11-24 02:00] VITALS: BP 190/99; RESP 45; TEMP 99.6; O2SAT 96
[2024-11-24] MEDS: furosemide 40mg/4ml inj IV ONE (03:06)
[2024-11-24 03:14] LABS: ABG BASE EXCESS -6.7 mmol/L (-2.0-3.0); ABG HCO3 10.2 mmol/L (21.0-28.0); ABG OXYGEN SATURATION 98.1 % (94.0-98.0); ABG PCO2 (T) 11.7 mmHg (35.0-48.0); ABG PH (T) 7.556 (7.350-7.450); ABG PO2 (T) 91.3 mmHg (83.0-108.0); ALLEN'S TEST Modified; FCOHb 0.3 % (0.5-1.5); FHHb 1.9 % (0.0-5.0); FMetHb 0.4 % (0.0-1.5); FO2Hb 97.4 % (94.0-98.0); MODE ROOM AIR; PATIENT TEMPERATURE 36.6; TOTAL HEMOGLOBIN 19.5 G/dl (13.5-17.5)
[2024-11-24] MEDS: morphine 2 MG/ML inj. syringe IV PRN (03:50)
[2024-11-24] MEDS: diazepam inj 5 MG/ML inj. IV ONE (05:30)
[2024-11-24 07:06] VITALS: BP 192/87; PULSE 134; RESP 42; TEMP 102.6; O2SAT 94
[2024-11-24] MEDS: acetaminophen 1,000mg/100ml IV 100 ML IV ONE (07:17)
[2024-11-24 07:53] LABS: BASOPHILS % (AUTO) 0.5 % (0-1); EOSINOPHILS % (AUTO) 0.1 % (0-6); HEMATOCRIT 52.4 % (42.0-52.0); HEMOGLOBIN 17.9 g/dl (14.0-17.9); LYMPHOCYTES # (AUTO) 0.4 X10'3 (1.1-4.8); LYMPHOCYTES % (AUTO) 3.9 % (21-51); MEAN CORPUSCULAR HEMOGLOBIN 31.4 PG (27.0-31.0); MEAN CORPUSCULAR HGB CONC 34.2 g/dL (33.0-36.5); MEAN CORPUSCULAR VOLUME 91.7 FL (78-98); MEAN PLATELET VOLUME 8.8 FL (7.4-10.4); MONOCYTES # (AUTO) 0.6 X10'3 (0-0.9); MONOCYTES % (AUTO) 6.1 % (2-12); NEUTROPHILS # (AUTO) 8.2 X10'3 (1.8-7.7); NEUTROPHILS % (AUTO) 89.4 % (42-75); PLATELET COUNT 262 X10'3 (140-440); RED BLOOD COUNT 5.71 X10'6 (4.70-6.10); RED CELL DISTRIBUTION WIDTH 14.1 % (11.5-14.5); WHITE BLOOD COUNT 9.1 X10'3 (4.5-11.0)
[2024-11-24 07:55] LABS: ALBUMIN 2.9 G/DL (3.4-5.0); ANION GAP 24 (8-16); BLOOD UREA NITROGEN 10 MG/DL (7-18); BUN/CREATININE RATIO 11.1 (10.0-20.0); CALCIUM 8.1 MG/DL (8.5-10.1); CHLORIDE 99 MMOL/L (99-107); GLUCOSE 274 MG/DL (70-104); POTASSIUM 3.7 MMOL/L (3.5-5.1); SODIUM 134 MMOL/L (135-145); eCRCL 72 ML/MIN; eGFR 85 ML/MIN
[2024-11-24 08:02] VITALS: PULSE 118; RESP 40; O2SAT 90
[2024-11-24 08:09] LABS: TOTAL CARBON DIOXIDE 10.9 MMOL/L (24-32)
[2024-11-24 08:55] VITALS: RESP 42; O2SAT 94
[2024-11-24] MEDS ORDERED: LORazepam 1 MG tablet PO PRN (09:50)
[2024-11-24] MEDS: scopolamine 1MG/72H patch 1 PATCH PATCH.TD.3 TD SCH (10:52)
[2024-11-24] MEDS: morphine 10mg/ml inj. IV PRN (11:23)
[2024-11-24] MEDS: diazepam inj 5 MG/ML inj. IV PRN (17:24)
[2024-11-24] MEDS: morphine 10mg/0.5ml (conc. morphine) oral syringe PO PRN (22:22)
[2024-11-25] MEDS: morphine 10mg/ml inj. IV ONE (00:38)
[2024-11-25] MEDS: morphine 2 MG/ML inj. syringe IV PRN (01:59)
[2024-11-25] MEDS: ondansetron/PF 4mg/2ml inj IV PRN (02:39)
[2024-11-25] MEDS: LidoCAINE 2% Topical Jelly 11mL syringe (UROJET) TOP ONE (02:50)
[2024-11-25 07:20] VITALS: BP 146/85; PULSE 122; RESP 32; TEMP 100.2; O2SAT 94
[2024-11-25 07:55] VITALS: RESP 32; O2SAT 87
[2024-11-25 16:17] VITALS: RESP 22
[2024-11-28] MEDS ORDERED: apixaban 5mg tablet PO SCH (20:00)
== END 2024-11-25 16:50 | DRG 64 ==
LOC: ER 12:56 → ED HOLD 14:49 → PCU 3S 17:33
PROVIDERS: ADMIT Internal Medicine; ATTEND Internal Medicine
PROC: B3251ZZ Computerized Tomography (CT Scan) of Bilateral Common Carotid Arteries using Low Osmolar Contrast (ICD-10-PCS; 2024-11-19)
PROC: B32G1ZZ Computerized Tomography (CT Scan) of Bilateral Vertebral Arteries using Low Osmolar Contrast (ICD-10-PCS; 2024-11-19)
PROC: B32R1ZZ Computerized Tomography (CT Scan) of Intracranial Arteries using Low Osmolar Contrast (ICD-10-PCS; 2024-11-19)
PROC: B3281ZZ Computerized Tomography (CT Scan) of Bilateral Internal Carotid Arteries using Low Osmolar Contrast (ICD-10-PCS; 2024-11-19)
PROC: B3251ZZ Computerized Tomography (CT Scan) of Bilateral Common Carotid Arteries using Low Osmolar Contrast (ICD-10-PCS; 2024-11-22)
PROC: B32R1ZZ Computerized Tomography (CT Scan) of Intracranial Arteries using Low Osmolar Contrast (ICD-10-PCS; 2024-11-22)
PROC: B32G1ZZ Computerized Tomography (CT Scan) of Bilateral Vertebral Arteries using Low Osmolar Contrast (ICD-10-PCS; 2024-11-22)
PROC: B3281ZZ Computerized Tomography (CT Scan) of Bilateral Internal Carotid Arteries using Low Osmolar Contrast (ICD-10-PCS; 2024-11-22)
PROC: 4A10X4Z Monitoring of Central Nervous Electrical Activity, External Approach (ICD-10-PCS; principal; 2024-11-23)
DX: I63.9 Cerebral infarction, unspecified (principal); I26.99 Other pulmonary embolism without acute cor pulmonale; I11.0 Hypertensive heart disease with heart failure; I50.9 Heart failure, unspecified; Z66 Do not resuscitate; Z51.5 Encounter for palliative care; F10.929 Alcohol use, unspecified with intoxication, unspecified; K21.9 Gastro-esophageal reflux disease without esophagitis; R29.707 NIHSS score 7; G47.33 Obstructive sleep apnea (adult) (pediatric); E78.00 Pure hypercholesterolemia, unspecified; E11.9 Type 2 diabetes mellitus without complications; Z79.01 Long term (current) use of anticoagulants; Z79.4 Long term (current) use of insulin; Z79.899 Other long term (current) drug therapy; Z79.84 Long term (current) use of oral hypoglycemic drugs
CPT/HCPCS: 36415; 36600; 70450; 70496; 70498; 70551; 71045; 80048; 80053; 80305; 80320; 81001; 82803; 82948; 83735; 83880; 84484; 85018; 85025; 85610; 85730; 87081; 92508; 92616; 93005; 93308; 93880; 94760; 94799; 95816; 96365; 96375; 97110; 97161; 97530; 99285; A4314; A4615; A4624; A6590; G0378; J0131; J1630; J1644; J1815; J1940; J2250; J2270; J2274; J2405; J3360; J3411; J3475; J3480; J3490; J7030; J7040; J8597; Q9967